=== PATIENT | female | born 2000 | race Caucasian/White ===

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

== ENCOUNTER 2019-05-30 19:31 | Emergency (ER) | payer MEDICAID ==
--- NOTE | 2019-05-30 19:37 | ERPHSYRPT ---
- History of Present Illness Time Seen by Provider: 05/30/19 19:37 Source: patient, family Exam Limitations: no limitations Timing/Duration: today Activites at Onset: none Quality: burning, pressure Onset Location: suprapubic Pain Radiation: none Severity of Pain-Max: mild Severity of Pain-Current: mild Sexual intercourse history: non-contributory Associated Symptoms: dysuria, urinary frequency Allergies/Adverse Reactions: cephalexin monohydrate [From Keflex] Allergy (Mild, Verified 05/30/19 20:04) Hives Hx Tetanus, Diphtheria Vaccination/Date Given: Yes Hx Influenza Vaccination/Date Given: No Hx Pneumococcal Vaccination/Date Given: No - Review of Systems Constitutional: No Symptoms Eyes: No Symptoms Ears, Nose, & Throat: No Symptoms Respiratory: No Symptoms Cardiac: No Symptoms Abdominal/Gastrointestinal: No Symptoms Genitourinary Symptoms: Dysuria, Urgency Musculoskeletal: No Symptoms Skin: No Symptoms Neurological: No Symptoms Psychological: No Symptoms Endocrine: No Symptoms Hematologic/Lymphatic: No Symptoms Immunological/Allergic: No Symptoms All Other Systems: Reviewed and Negative - Past Medical History Pertinent Past Medical History: No Neurological History: No Pertinent History ENT History: No Pertinent History Cardiac History: No Pertinent History Respiratory History: No Pertinent History Endocrine Medical History: No Pertinent History Musculoskeletal History: No Pertinent History GI Medical History: No Pertinent History History: No Pertinent History Psycho-Social History: No Pertinent History Female Reproductive Disorders: No Pertinent History - Past Surgical History Past Surgical History: Yes Neuro Surgical History: No Pertinent History Cardiac: No Pertinent History Respiratory: No Pertinent History Gastrointestinal: Appendectomy Genitourinary: No Pertinent History Musculoskeletal: No Pertinent History Female Surgical History: No Pertinent History - Social History Smoking Status: Current every day smoker Exposure to second hand smoke: Yes Drug Use: none Patient Lives Alone: No - Nursing Vital Signs Nursing Vital Signs: Initial Vital Signs Temperature 98.8 F 05/30/19 19:56 Pulse Rate 81 05/30/19 19:56 Respiratory Rate 18 05/30/19 19:56 Blood Pressure 137/79 05/30/19 19:56 O2 Sat by Pulse Oximetry 100 05/30/19 19:56 Pain Scale Pain Intensity 3 - Physical Exam General Appearance: no apparent distress, alert, anxiety Eye Exam: PERRL/EOMI, eyes nml inspection Ears, Nose, Throat Exam: normal ENT inspection, moist mucous membranes Neck Exam: normal inspection, non-tender, supple, full range of motion Respiratory Exam: No chest tenderness Cardiovascular Exam: regular rate/rhythm, normal heart sounds, normal peripheral pulses Gastrointestinal/Abdomen Exam: soft, normal bowel sounds, No tenderness Pelvic Exam: not done Rectal Exam: not done Back Exam: normal inspection, normal range of motion, No CVA tenderness, No vertebral tenderness Extremity Exam: normal inspection, normal range of motion, pelvis stable Neurologic Exam: alert, oriented x 3, cooperative, sales office manager II-XII nml as tested Skin Exam: normal color, warm, dry Lymphatic Exam: No adenopathy SpO2 Interpretation: normal O2 Delivery: Room Air - Course Nursing assessment & vital signs reviewed: Yes Ordered Tests: Active Orders 24 hr Category Date Time Status CULTURE,URINE Stat Lab 05/30/19 20:50 Received HCG,QUALITATIVE URINE Stat Lab 05/30/19 20:50 Completed UA W/RFX UR CULTURE Stat Lab 05/30/19 20:50 Completed Medication Summary Discontinued Medications Generic Name Dose Route Start Last Admin Trade Name Freq PRN Reason Stop Dose Admin Phenazopyridine HCl 200 mg 05/30/19 21:23 Pyridium 200 Mg PO 05/30/19 21:24 STAT ONE Trimethoprim/Sulfamethoxazole 1 tab 05/30/19 21:22 Bactrim Ds Tablet PO 05/30/19 21:23 STAT STA Lab/Rad Data: Laboratory Results 05/30/19 05/30/19 Range/Units 20:50 20:50 Urine Color YELLOW (YELLOW) Urine Appearance SLIGHTLY CLOUDY (CLEAR) Urine pH 7.0 (5-6) Ur Specific [place] 1.025 (1.005-1.025) Urine Protein NEGATIVE (Negative) Urine Ketones NEGATIVE (NEGATIVE) Urine Blood NEGATIVE (0-5) Virgil/ul Urine Nitrite NEGATIVE (NEGATIVE) Urine Bilirubin NEGATIVE (NEGATIVE) Urine Urobilinogen NEGATIVE (0-1) mg/dL Ur Leukocyte Esterase MODERATE (NEGATIVE) Urine WBC (Auto) 51-100 (0-5) /HPF Urine RBC (Auto) 6-10 (0-2) /HPF U Epithel Cells (Auto) MODERATE (FEW) /HPF Urine Bacteria (Auto) FEW (NEGATIVE) /HPF Unidentified Crystals Not Reportable Urine Mucus (Auto) SLIGHT (NEGATIVE) /HPF Urine Culture Reflexed YES (NO) Urine Glucose NEGATIVE (NEGATIVE) mg/dL Urine HCG, Qual NEGATIVE (Negative) - Progress Progress: re-examined Air Movement: good Blood Culture(s) Obtained: No Antibiotics given: Yes Counseled pt/family regarding: lab results, diagnosis, need for follow-up - Departure Departure Disposition: Home Clinical Impression: UTI (urinary tract infection) Condition: Stable Critical Care Time: No Referrals: DAVID DEL RIO [Primary Care Provider] - Additional Instructions: drink plenty of fluids. add tylenol and ibuprofen for pain. follow up with primary doctor for persistent symptoms Prescriptions: Phenazopyridine HCl 200 mg [Pyridium 200 mg] 200 mg PO TID #6 tablet Smz/Tmp Ds Tablet [Bactrim Ds Tablet] 1 udtab PO BID #20 tablet
[2019-05-30 20:04] VITALS: O2SAT 100
[2019-05-30 21:09] LABS: Appearance SLIGHTLY CLOUDY (CLEAR); Bacteria FEW /HPF (NEGATIVE); Bilirubin NEGATIVE (NEGATIVE); Blood NEGATIVE Ery/ul (0-5); Epithelial Cells MODERATE /HPF (FEW); Glucose NEGATIVE (NEGATIVE); Ketones NEGATIVE (NEGATIVE); Leukocyte Esterase MODERATE (NEGATIVE); Mucus SLIGHT /HPF (NEGATIVE); Nitrite NEGATIVE (NEGATIVE); Protein,Urine Dip NEGATIVE (Negative); Specific Gravity 1.025 (1.005-1.025); Urobilinogen NEGATIVE mg/dL (0-1); WBC 51-100 /HPF (0-5)
[2019-05-30] MEDS ORDERED: BACTRIM DS TABLET PO STA (21:22)
[2019-05-30] MEDS ORDERED: PYRIDIUM 200 MG PO ONE (21:23)
[2019-05-30] MEDS ORDERED: PYRIDIUM 200 MG ONE (21:27)
[2019-05-30] MEDS ORDERED: BACTRIM DS TABLET PO ONE (21:27)
[2019-05-30 21:50] VITALS: BP 115/73; PULSE 63
== END 2019-05-30 21:50 | disposition home or self-care (01) ==
LOC: ED 19:31
DX: N39.0 Urinary tract infection, site not specified (principal)
CPT/HCPCS: 81001; 84703; 87086; 99283; A9270-GY

== ENCOUNTER 2019-11-18 20:05 | Emergency (ER) | payer MEDICAID, OTHER ==
[2019-11-18 21:10] VITALS: O2SAT 100
[2019-11-18 21:22] LABS: Appearance SLIGHTLY CLOUDY (CLEAR); Bilirubin NEGATIVE (NEGATIVE); Blood NEGATIVE Ery/ul (0-5); Epithelial Cells RARE /HPF (FEW); Glucose NEGATIVE (NEGATIVE); Ketones NEGATIVE (NEGATIVE); Leukocyte Esterase LARGE (NEGATIVE); Mucus MODERATE /HPF (NEGATIVE); Nitrite NEGATIVE (NEGATIVE); Protein,Urine Dip 30 (Negative); Specific Gravity 1.035 (1.005-1.025); Urobilinogen NEGATIVE mg/dL (0-1)
--- NOTE | 2019-11-18 21:46 | ERPHSYRPT ---
- History of Present Illness Time Seen by Provider: 11/18/19 20:50 Patient Subjective Stated Complaint: pt states that today she began burning in pelvis area, pt states that she woke fine, pt states that she had intercoarse this morning, pt states that while she was at work she began to have pressure and burning while standing, pt states that she had a UTI last month Triage Nursing Assessment: pt ambulated into the er, pt is axo x3, pt c/o of burning while urinating, pt has redness to rene area, white discharge present, c/o 8/10 pain to rene area, vital wnl Physician History: Patient is a 19-year-old white female with history of recurrent urinary tract infections. This episodes symptoms started today she was instructed by her urologist to have a prolonged course of Bactrim and she was uncertain of that and did not follow his instructions. She also complains of vaginal itching and pain and white discharge. Timing/Duration: today, intermittent Activites at Onset: sexual activity Quality: aching, burning Onset Location: vaginal, urethral Pain Radiation: none Severity of Pain-Max: severe Severity of Pain-Current: severe Prior abdominal problems: similar symptoms, UTI Sexual intercourse history: less than 2 months ago Modifying Factors: Improves With: urinating Associated Symptoms: dysuria, urinary frequency, vaginal discharge Allergies/Adverse Reactions: cephalexin monohydrate [From Keflex] Allergy (Mild, Verified 11/18/19 21:10) Hives Hx Tetanus, Diphtheria Vaccination/Date Given: Yes Hx Influenza Vaccination/Date Given: No Hx Pneumococcal Vaccination/Date Given: No Travel Risk - International Travel Have you traveled outside of the country in past 3 weeks: No - Coronavirus Screening Are you exhibiting any of the following symptoms?: No Close contact with a COVID-19 positive Pt in past 14-21 Days: No - Review of Systems Constitutional: No Fever, No Chills Eyes: No Symptoms Ears, Nose, & Throat: No Symptoms Respiratory: No Cough, No Dyspnea Cardiac: No Chest Pain, No Edema, No Syncope Abdominal/Gastrointestinal: No Abdominal Pain, No Nausea, No Vomiting, No Diarrhea Genitourinary Symptoms: Dysuria, Frequency, Hematuria, Urgency, Vaginal Discharge, Vaginal Itching Musculoskeletal: No Back Pain, No Neck Pain Skin: No Rash Neurological: No Dizziness, No Focal Weakness, No Sensory Changes Psychological: No Symptoms Endocrine: No Symptoms All Other Systems: Reviewed and Negative - Past Medical History Pertinent Past Medical History: No Neurological History: No Pertinent History ENT History: No Pertinent History Cardiac History: No Pertinent History Respiratory History: No Pertinent History Endocrine Medical History: No Pertinent History Musculoskeletal History: No Pertinent History GI Medical History: No Pertinent History History: No Pertinent History Psycho-Social History: Anxiety, Depression Female Reproductive Disorders: No Pertinent History - Past Surgical History Past Surgical History: Yes Neuro Surgical History: No Pertinent History Cardiac: No Pertinent History Respiratory: No Pertinent History Gastrointestinal: Appendectomy Genitourinary: No Pertinent History Musculoskeletal: No Pertinent History Female Surgical History: No Pertinent History - Social History Smoking Status: Current every day smoker How long have you smoked: 0.2 Exposure to second hand smoke: Yes Drug Use: none Patient Lives Alone: No - Female History Hx Now: No - Nursing Vital Signs Nursing Vital Signs: Initial Vital Signs Temperature 98.5 F 11/18/19 20:43 Pulse Rate 84 11/18/19 20:43 Respiratory Rate 14 11/18/19 20:43 Blood Pressure 127/96 11/18/19 20:43 O2 Sat by Pulse Oximetry 100 11/18/19 20:43 Pain Scale Pain Intensity 8 - Physical Exam General Appearance: mild distress, alert Eye Exam: PERRL/EOMI, eyes nml inspection Ears, Nose, Throat Exam: normal ENT inspection, TMs normal, pharynx normal, moist mucous membranes Neck Exam: normal inspection, non-tender, supple, full range of motion Respiratory Exam: normal breath sounds, lungs clear, No respiratory distress Cardiovascular Exam: regular rate/rhythm, normal heart sounds, normal peripheral pulses Gastrointestinal/Abdomen Exam: soft, No tenderness, No mass Pelvic Exam: adnexal tenderness, vaginal discharge (Typical of monilial), No normal external exam (Examination of the external genitalia reveals some redness but no ulcerations appreciated) Rectal Exam: deferred Back Exam: normal inspection, normal range of motion, No CVA tenderness, No vertebral tenderness Extremity Exam: normal inspection, normal range of motion, pelvis stable Neurologic Exam: alert, oriented x 3, cooperative, paper ruler II-XII nml as tested, normal mood/affect, sensation nml, No motor deficits Skin Exam: normal color, warm, dry Lymphatic Exam: No adenopathy SpO2: 100 - Course Nursing assessment & vital signs reviewed: Yes Ordered Tests: Active Orders 24 hr Category Date Time Status CULTURE,URINE Stat Lab 11/18/19 21:12 Received UA W/RFX UR CULTURE Stat Lab 11/18/19 21:12 Completed Lab/Rad Data: Laboratory Results 11/18/19 Range/Units 21:12 Urine Color YELLOW (YELLOW) Urine Appearance SLIGHTLY CLOUDY (CLEAR) Urine pH 5.0 (5-6) Ur Specific [place] 1.035 (1.005-1.025) Urine Protein 30 (Negative) Urine Ketones NEGATIVE (NEGATIVE) Urine Blood NEGATIVE (0-5) Virgil/ul Urine Nitrite NEGATIVE (NEGATIVE) Urine Bilirubin NEGATIVE (NEGATIVE) Urine Urobilinogen NEGATIVE (0-1) mg/dL Ur Leukocyte Esterase LARGE (NEGATIVE) Urine WBC (Auto) 6-10 (0-5) /HPF Urine RBC (Auto) NONE (0-2) /HPF U Epithel Cells (Auto) RARE (FEW) /HPF Urine Bacteria (Auto) NONE (NEGATIVE) /HPF Urine Mucus (Auto) MODERATE (NEGATIVE) /HPF Urine Culture Reflexed YES (NO) Urine Glucose NEGATIVE (NEGATIVE) mg/dL - Progress Progress: unchanged Air Movement: good Blood Culture(s) Obtained: No Antibiotics given: Yes - Departure Departure Disposition: Home Clinical Impression: Urinary tract infection, Monilial vaginitis Condition: Stable Critical Care Time: No Referrals: DAVID DEL RIO [Primary Care Provider] - Instructions: Urinary Tract Infection, Adult (DC) Prescriptions: Smz/Tmp Ds Tablet [Bactrim Ds Tablet] 1 udtab PO BID #14 tablet Fluconazole [Diflucan] 150 mg PO DAILY 5 Days #5 tablet
[2019-11-18 21:58] VITALS: BP 125/62; PULSE 64
== END 2019-11-18 21:58 | disposition home or self-care (01) ==
LOC: ED 20:05
DX: N39.0 Urinary tract infection, site not specified (principal); B37.3 Candidiasis of vulva and vagina
CPT/HCPCS: 81001; 87086; 99283

== ENCOUNTER 2020-05-13 23:19 | Emergency (ER) | payer OTHER ==
[2020-05-13] MEDS ORDERED: TORAdol 30 mg Injection IV ONE (23:42)
--- NOTE | 2020-05-13 23:43 | ERPHSYRPT ---
- History of Present Illness Time Seen by Provider: 05/13/20 23:36 Source: patient Exam Limitations: no limitations Physician History: The patient is a 19-year-old female with a past medical history significant for a prior appendectomy, anxiety/depression who presents with a chief complaint of left lower quadrant abdominal pain. Onset reported was yesterday. The pain is described as a sharp pain that is constant and localized to the left lower quadrant and does not radiate and is mild to moderate severity. She denies fever, chills, changes in her appetite, nausea, vomiting, diarrhea, constipation, vaginal bleeding or vaginal discharge. Of note, the patient reportedly has a history of ovarian cyst and is on Depo. She also thinks she may have a history of kidney stones because she had "crystals" in her urine on a UA performed in the recent past. For pain in the last 24 hours to include Tylenol and/or ibuprofen. Associated Symptoms: abdominal pain, No nausea, No vomiting, No cough, No chest pain, No fever Allergies/Adverse Reactions: cephalexin monohydrate [From Datadecision] Allergy (Mild, Verified 05/13/20 23:42) Hives Home Medications: Bupropion HCl [Wellbutrin Xl] 300 mg PO DAILY 05/13/20 [History] Hx Tetanus, Diphtheria Vaccination/Date Given: Yes Hx Influenza Vaccination/Date Given: No Hx Pneumococcal Vaccination/Date Given: No - Review of Systems Constitutional: No Symptoms, No Fever, No Chills, No Weight Loss Eyes: No Symptoms Ears, Nose, & Throat: No Symptoms Respiratory: No Cough, No Cyanosis, No Dyspnea, No Dyspnea on Exertion ([place]) Cardiac: No Chest Pain, No Palpitations, No Syncope Abdominal/Gastrointestinal: Abdominal Pain, No Nausea, No Vomiting, No Diarrhea, No Constipation, No Hematemesis, No Hematochezia, No Melena, No Appetite Changes Genitourinary Symptoms: No Dysuria, No Frequency, No Urgency, No Urinary Retention, No Flank Pain, No Vaginal Bleeding, No Vaginal Discharge Musculoskeletal: No Back Pain Skin: No Symptoms Neurological: No Symptoms Psychological: No Symptoms All Other Systems: Reviewed and Negative - Past Medical History Pertinent Past Medical History: No Neurological History: No Pertinent History ENT History: No Pertinent History Cardiac History: No Pertinent History Respiratory History: No Pertinent History Endocrine Medical History: No Pertinent History Musculoskeletal History: No Pertinent History GI Medical History: No Pertinent History History: No Pertinent History Psycho-Social History: Anxiety, Depression Female Reproductive Disorders: No Pertinent History - Past Surgical History Past Surgical History: Yes Neuro Surgical History: No Pertinent History Cardiac: No Pertinent History Respiratory: No Pertinent History Gastrointestinal: Appendectomy Genitourinary: No Pertinent History Musculoskeletal: No Pertinent History Female Surgical History: No Pertinent History - Social History Smoking Status: Current every day smoker How long have you smoked: 0.2 Exposure to second hand smoke: Yes Drug Use: none Patient Lives Alone: No - Nursing Vital Signs Nursing Vital Signs: Initial Vital Signs Temperature 98.0 F 05/13/20 23:29 Pulse Rate 97 H 05/13/20 23:29 Respiratory Rate 18 05/13/20 23:29 Blood Pressure 157/94 05/13/20 23:29 O2 Sat by Pulse Oximetry 99 05/13/20 23:29 Pain Scale Pain Intensity 9 - Physical Exam General Appearance: no apparent distress, alert Eye Exam: PERRL/EOMI, No scleral icterus Ears, Nose, Throat Exam: normal ENT inspection, pharynx normal, moist mucous membranes, No pharyngeal erythema, No tonsillar exudate Neck Exam: normal inspection Respiratory Exam: normal breath sounds, airway intact, No chest tenderness, No lungs clear, No respiratory distress Cardiovascular Exam: regular rate/rhythm, normal heart sounds, No murmur, No friction rub, No gallop, No tachycardia, No edema Gastrointestinal/Abdomen Exam: soft, tenderness (LLQ tenderness), rebound, No distention, No mass, No guarding, No organomegaly, No splenomegaly Pelvic Exam: not done Rectal Exam: deferred Back Exam: normal inspection Extremity Exam: normal inspection Neurologic Exam: alert, oriented x 3, cooperative Skin Exam: normal color, warm, dry, rash, No petechiae, No jaundice SpO2 Interpretation: normal SpO2: 99 - Course Nursing assessment & vital signs reviewed: Yes - CT Exams Abdomen/Pelvis CT Interpretation: Tele-radiologist Report (Epiploic appendagitis ) Ordered Tests: Active Orders 24 hr Category Date Time Status ABDOMEN AND PELVIS W CONTRAST [CT] Stat Exams 05/14/20 00:13 Taken BMP Stat Lab 05/13/20 23:45 Completed CBC W DIFF Stat Lab 05/13/20 23:45 Completed HCG,QUALITATIVE URINE Stat Lab 05/13/20 23:45 Completed LIPASE Stat Lab 05/13/20 23:45 Completed UA W/RFX UR CULTURE Stat Lab 05/13/20 23:45 Completed Medication Summary Discontinued Medications Generic Name Dose Route Start Last Admin Trade Name [place] PRN Reason Stop Dose Admin Ketorolac Tromethamine 15 mg 05/13/20 23:42 05/14/20 00:08 Toradol 30 Mg Injection IV 05/13/20 23:43 15 mg STAT ONE Administration Ketorolac Tromethamine Confirm 05/14/20 00:07 Toradol 30 Mg Injection Administered 05/14/20 00:08 Dose 30 mg .ROUTE .STK-MED ONE Lab/Rad Data: Laboratory Result Diagrams 05/13/20 23:45 05/13/20 23:45 Laboratory Results 05/13/20 05/13/20 05/13/20 Range/Units 23:45 23:45 23:45 WBC (4.0-10.5) K/mm3 RBC (4.1-5.4) M/mm3 Hgb (12.0-16.0) gm/dl Hct (35-47) % MCV (78-100) fl MCH (26-32) pg MCHC (32-36) g/dl RDW (11.5-14.0) % Plt Count (150-450) K/mm3 MPV (7.5-11.0) fl Gran % (36.0-66.0) % Eos # (Auto) (0-0.5) Absolute Lymphs (auto) (1.0-4.6) Absolute Monos (auto) (0.0-1.3) Lymphocytes % (24.0-44.0) % Monocytes % (0.0-12.0) % Eosinophils % (0.00-5.0) % Basophils % (0.0-0.4) % Absolute Granulocytes (1.4-6.9) Basophils # (0-0.4) Sodium 139 (137-145) mmol/L Potassium 3.8 (3.5-5.1) mmol/L Chloride 103 (98-107) mmol/L Carbon Dioxide 26 (22-30) mmol/L Anion Gap 13.5 (5-15) MEQ/L BUN 14 (7-17) mg/dL Creatinine 0.75 (0.52-1.04) mg/dL Estimated GFR > 60.0 ML/MIN Glucose 128 H (74-106) mg/dL Calcium 9.9 (8.4-10.2) mg/dL Lipase 86 (23-300) U/L Urine Color STRAW (YELLOW) Urine Appearance CLEAR (CLEAR) Urine pH 7.0 (5-6) Ur Specific [place] 1.005 (1.005-1.025) Urine Protein NEGATIVE (Negative) Urine Ketones NEGATIVE (NEGATIVE) Urine Blood NEGATIVE (0-5) [place]gil/ul Urine Nitrite NEGATIVE (NEGATIVE) Urine Bilirubin NEGATIVE (NEGATIVE) Urine Urobilinogen NEGATIVE (0-1) mg/dL Ur Leukocyte Esterase TRACE (NEGATIVE) Urine WBC (Auto) 0-2 (0-5) /HPF Urine RBC (Auto) NONE (0-2) /HPF U Epithel Cells (Auto) NONE (FEW) /HPF Urine Bacteria (Auto) NONE (NEGATIVE) /HPF Urine Culture Reflexed NO (NO) Urine Glucose NEGATIVE (NEGATIVE) mg/dL Urine HCG, Qual NEGATIVE (Negative) 05/13/20 Range/Units 23:45 WBC 8.7 (4.0-10.5) K/mm3 RBC 4.13 (4.1-5.4) M/mm3 Hgb 13.6 (12.0-16.0) gm/dl Hct 39.2 (35-47) % MCV 94.9 (78-100) fl MCH 32.9 H (26-32) pg MCHC 34.7 (32-36) g/dl RDW 12.7 (11.5-14.0) % Plt Count 367 (150-450) K/mm3 MPV 10.8 (7.5-11.0) fl Gran % 50.5 (36.0-66.0) % Eos # (Auto) 0.22 (0-0.5) Absolute Lymphs (auto) 3.59 (1.0-4.6) Absolute Monos (auto) 0.47 (0.0-1.3) Lymphocytes % 41.3 (24.0-44.0) % Monocytes % 5.4 (0.0-12.0) % Eosinophils % 2.5 (0.00-5.0) % Basophils % 0.3 (0.0-0.4) % Absolute Granulocytes 4.38 (1.4-6.9) Basophils # 0.03 (0-0.4) Sodium (137-145) mmol/L Potassium (3.5-5.1) mmol/L Chloride (98-107) mmol/L Carbon Dioxide (22-30) mmol/L Anion Gap (5-15) MEQ/L BUN (7-17) mg/dL Creatinine (0.52-1.04) mg/dL Estimated GFR ML/MIN Glucose (74-106) mg/dL Calcium (8.4-10.2) mg/dL Lipase (23-300) U/L Urine Color (YELLOW) Urine Appearance (CLEAR) Urine pH (5-6) Ur Specific [place] (1.005-1.025) Urine Protein (Negative) Urine Ketones (NEGATIVE) Urine Blood (0-5) Virgil/ul Urine Nitrite (NEGATIVE) Urine Bilirubin (NEGATIVE) Urine Urobilinogen (0-1) mg/dL Ur Leukocyte Esterase (NEGATIVE) Urine WBC (Auto) (0-5) /HPF Urine RBC (Auto) (0-2) /HPF U Epithel Cells (Auto) (FEW) /HPF Urine Bacteria (Auto) (NEGATIVE) /HPF Urine Culture Reflexed (NO) Urine Glucose (NEGATIVE) mg/dL Urine HCG, Qual (Negative) - Progress Progress: improved Progress Note: 05/14/20 02:56 Nontoxic appearance. The patient presents with left lower quadrant abdominal pain with a differential being mass, ovarian cyst, ovarian torsion, colitis, ectopic fortunately, her CT resulted in what appears to be epiploic appendagitis. Was relatively benign. She was discharged with instructions to take naproxen scheduled for pain in addition to Tylenol to take for breakthrough pain. Counseled pt/family regarding: lab results, diagnosis, need for follow-up, rad results - Departure Departure Disposition: Home Clinical Impression: Epiploic appendagitis Condition: Stable Critical Care Time: No Referrals: DAVID FERNANDEZ [Primary Care Provider] - Instructions: Acute Abdomen (Belly Pain), Adult (DC) Additional Instructions: You have evidence of epiploic appendagitis on your CT scan, specifically over a part of the fat attached to the left colon. The mainstay of therapy consist of NSAIDs. Medications in the NSAID class include ibuprofen, Motrin, Aleve or naproxen. Please take your naproxen as prescribed and please take this medication with food. Prescriptions: Naproxen 500 mg [Naprosyn 500 MG] 500 mg PO BID #10 tablet
[2020-05-14 00:03] LABS: Absolute Neutrophil Ct (ANC) 4.38 (1.4-6.9); BASOPHIL % 0.3 % (0.0-0.4); Basophil (Absolute #) 0.03 (0-0.4); Eosinophil % 2.5 % (0.00-5.0); Eosinophil (Absolute #) 0.22 (0-0.5); Hematocrit 39.2 % (35-47); Hemoglobin 13.6 gm/dl (12.0-16.0); Lymphocyte (Absolute #) 3.59 (1.0-4.6); Lymphocytes % 41.3 % (24.0-44.0); Mean Cell Volume 94.9 fl (78-100); Mean Corpuscular Hemoglobin 32.9 pg (26-32); Mean Corpuscular Hgb Concent. 34.7 g/dl (32-36); Mean Platelet Volume 10.8 fl (7.5-11.0); Monocyte (Absolute #) 0.47 (0.0-1.3); Monocytes % 5.4 % (0.0-12.0); Neutrophil % 50.5 % (36.0-66.0); Platelet Count 367 K/mm3 (150-450); Red Blood Count 4.13 M/mm3 (4.1-5.4); Red Cell Distribution Width 12.7 % (11.5-14.0); White Blood Count 8.7 K/mm3 (4.0-10.5)
[2020-05-14] MEDS ORDERED: TORAdol 30 mg Injection ONE (00:07)
[2020-05-14 00:12] LABS: ANION GAP 13.5 MEQ/L (5-15); BLOOD UREA NITROGEN 14 mg/dL (7-17); CHLORIDE 103 mmol/L (98-107); Calcium 9.9 mg/dL (8.4-10.2); Carbon Dioxide 26 mmol/L (22-30); Creatinine 1 0.75 mg/dL (0.52-1.04); EST GLOMERULAR FILTRATION RATE > 60.0 ML/MIN; Glucose 128 mg/dL (74-106); LIPASE 86 U/L (23-300); Potassium 3.8 mmol/L (3.5-5.1); SODIUM 139 mmol/L (137-145)
[2020-05-14 00:36] LABS: Appearance CLEAR (CLEAR); Bilirubin NEGATIVE (NEGATIVE); Blood NEGATIVE Ery/ul (0-5); Glucose NEGATIVE (NEGATIVE); Ketones NEGATIVE (NEGATIVE); Leukocyte Esterase TRACE (NEGATIVE); Nitrite NEGATIVE (NEGATIVE); Protein,Urine Dip NEGATIVE (Negative); Specific Gravity 1.005 (1.005-1.025); Urobilinogen NEGATIVE mg/dL (0-1); WBC 0-2 /HPF (0-5)
[2020-05-14 01:28] VITALS: BP 125/69; PULSE 76
[2020-05-14 02:57] VITALS: O2SAT 99
--- NOTE | 2020-05-14 08:52 | XRAY ---
Indication: Left lower quadrant pain. History ovary cysts. Multiple contiguous axial images obtained through the abdomen and pelvis using 80 cc Isovue 370 contrast only. Comparison: CT renal stone study January 07, 2015. Lung bases remain clear. Heart is not enlarged. Noncontrasted stomach and bowel loops appear nonobstructed. Again appendectomy. Distal descending colon demonstrates subcentimeter fatty pericolonic stranding (image 52, series 2), possible epiploic appendagitis. No free fluid/air. Gallbladder partially contracted without gallstones. Remaining liver, gallbladder, pancreas, spleen, adrenal glands, kidneys, ureters, bladder, uterus, and aorta appear unremarkable. No pathologic retroperitoneal lymphadenopathy. Osseous structures intact. Impression: 1. New distal descending colon subcentimeter fatty pericolonic stranding, possible epiploic appendagitis. 2. Remaining CT abdomen/pelvis with contrast exam is negative. Comment: Preliminary interpretation was made by [facility]. No critical discrepancy.
== END 2020-05-14 01:44 | disposition home or self-care (01) ==
LOC: ED 23:19
DX: K63.89 Other specified diseases of intestine (principal); R10.32 Left lower quadrant pain
CPT/HCPCS: 36000; 36415; 74177; 80048; 81001; 83690; 84703; 85025; 96374; 99284; J1885

== ENCOUNTER 2020-07-20 21:53 | Emergency (ER) | payer OTHER ==
[2020-07-20] MEDS ORDERED: Zofran 4 MG/2 ML VIAL IV ONE (22:21)
[2020-07-20] MEDS ORDERED: Sodium Chloride 0.9% 1000 ML 1,000 ML IV STA (22:21)
[2020-07-20] MEDS ORDERED: TORAdol 30 mg Injection IV ONE (22:21)
--- NOTE | 2020-07-20 23:02 | ERPHSYRPT ---
- History of Present Illness Time Seen by Provider: 07/20/20 21:54 Historian: patient Exam Limitations: no limitations Patient Subjective Stated Complaint: Patient states " I feel like I have an Ovarian Cyst that is getting ready to bust". I have had one bust several years ago and it feels the same way". Triage Nursing Assessment: Patient arrived to ED and offered bathroom to collect urine. Urine collected and yellow in color with no odor present. Patient ambulated to room with steady gait and no difficulties noted. Patient A/O times 4. Patient able to follow directions without difficulty. Lungs clear bilateral A/P throughout. Patient denies chest pain. Patient denies SOB. Physician History: 19 years old female presented in the ER with chief complaint of right lower quadrant/right pelvic pain since yesterday, mild to moderate intensity dull aching to sharp in nature, aggravated with activity and better with being resting with no radiation. Denies any urinary disturbance, no vaginal bleeding or discharge. Patient does have history of appendectomy and right ovarian cyst in the past. Patient thinks she is having pain similar to her ovarian cyst pain. Denies any fever or chills. Has nausea but no vomiting. Denies any upper abdominal pain. Timing/Duration: yesterday, gradual onset Quality: sharpness Abdominal Pain Onset Location: RLQ Severity of Pain-Max: moderate Severity of Pain-Current: moderate Associated Symptoms: nausea Previous symptoms: same symptoms as today Allergies/Adverse Reactions: cephalexin monohydrate [From Keflex] Allergy (Mild, Verified 07/20/20 22:13) Hives Hx Tetanus, Diphtheria Vaccination/Date Given: Yes Hx Influenza Vaccination/Date Given: No Hx Pneumococcal Vaccination/Date Given: No Immunizations Up to Date: Yes Travel Risk - International Travel Have you traveled outside of the country in past 3 weeks: No - Coronavirus Screening Are you exhibiting any of the following symptoms?: No Close contact with a COVID-19 positive Pt in past 14-21 Days: No - Review of Systems Constitutional: No Symptoms Eyes: No Symptoms Ears, Nose, & Throat: No Symptoms Respiratory: No Symptoms Cardiac: No Symptoms Abdominal/Gastrointestinal: Abdominal Pain Genitourinary Symptoms: No Symptoms Musculoskeletal: No Symptoms Skin: No Symptoms Neurological: No Symptoms Psychological: No Symptoms Endocrine: No Symptoms Hematologic/Lymphatic: No Symptoms Immunological/Allergic: No Symptoms - Past Medical History Pertinent Past Medical History: No Neurological History: No Pertinent History ENT History: No Pertinent History Cardiac History: No Pertinent History Respiratory History: No Pertinent History Endocrine Medical History: No Pertinent History Musculoskeletal History: No Pertinent History GI Medical History: No Pertinent History History: No Pertinent History Psycho-Social History: Anxiety, Depression Female Reproductive Disorders: No Pertinent History - Past Surgical History Past Surgical History: Yes Neuro Surgical History: No Pertinent History Cardiac: No Pertinent History Respiratory: No Pertinent History Gastrointestinal: Appendectomy Genitourinary: No Pertinent History Musculoskeletal: No Pertinent History Female Surgical History: No Pertinent History - Social History Smoking Status: Former smoker How long have you smoked: 0.2 Exposure to second hand smoke: Yes Drug Use: none Patient Lives Alone: Yes - Female History Hx Last Menstrual Period: Depo-Shot Hx Now: No - Nursing Vital Signs Nursing Vital Signs: Initial Vital Signs Temperature 98.6 F 07/20/20 22:06 Pulse Rate 88 07/20/20 22:06 Respiratory Rate 18 07/20/20 22:06 Blood Pressure 161/74 07/20/20 22:06 O2 Sat by Pulse Oximetry 99 07/20/20 22:06 Pain Scale Pain Intensity 0 - Physical Exam General Appearance: no apparent distress Eye Exam: eyes nml inspection Ears, Nose, Throat Exam: normal ENT inspection, pharynx normal Neck Exam: normal inspection, non-tender, supple, full range of motion Respiratory Exam: normal breath sounds, lungs clear Cardiovascular Exam: regular rate/rhythm, normal heart sounds Gastrointestinal/Abdomen Exam: soft, normal bowel sounds, tenderness (Right lower quadrant/pelvic area. 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 Skin Exam: normal color, warm SpO2 Interpretation: normal SpO2: 99 O2 Delivery: Room Air Ordered Tests: Medication Summary Discontinued Medications Generic Name Dose Route Start Last Admin Trade Name Freq PRN Reason Stop Dose Admin Sodium Chloride 1,000 mls @ 999 mls/hr 07/20/20 22:21 07/20/20 23:27 Sodium Chloride 0.9% 1000 Ml IV 07/20/20 23:21 999 mls/hr .Q1H1M STA Administration Sodium Chloride Confirm 07/20/20 23:22 Sodium Chloride 0.9% 1000 Ml Administered 07/20/20 23:23 Dose 1,000 mls @ ud .ROUTE .STK-MED ONE Ketorolac Tromethamine 30 mg 07/20/20 22:21 07/20/20 23:27 Toradol 30 Mg Injection IV 07/20/20 22:22 30 mg STAT ONE Administration Ketorolac Tromethamine Confirm 07/20/20 23:22 Toradol 30 Mg Injection Administered 07/20/20 23:23 Dose 30 mg .ROUTE .STK-MED ONE Ondansetron HCl 4 mg 07/20/20 22:21 07/20/20 23:27 Zofran 4 Mg/2 Ml Vial IV 07/20/20 22:22 4 mg STAT ONE Administration Ondansetron HCl Confirm 07/20/20 23:22 Zofran 4 Mg/2 Ml Vial Administered 07/20/20 23:23 Dose 4 mg .ROUTE .STK-MED ONE Lab/Rad Data: Laboratory Result Diagrams 07/20/20 23:15 07/20/20 23:15 Laboratory Results 07/20/20 07/20/20 07/20/20 Range/Units 23:15 23:15 23:15 WBC 9.6 (4.0-10.5) K/mm3 RBC 4.22 (4.1-5.4) M/mm3 Hgb 12.6 (12.0-16.0) gm/dl Hct 40.0 (35-47) % MCV 94.8 (78-100) fl MCH 29.9 (26-32) pg MCHC 31.5 L (32-36) g/dl RDW 12.4 (11.5-14.0) % Plt Count 364 (150-450) K/mm3 MPV 10.8 (7.5-11.0) fl Gran % 50.4 (36.0-66.0) % Eos # (Auto) 0.16 (0-0.5) Absolute Lymphs (auto) 3.90 (1.0-4.6) Absolute Monos (auto) 0.68 (0.0-1.3) Lymphocytes % 40.5 (24.0-44.0) % Monocytes % 7.1 (0.0-12.0) % Eosinophils % 1.7 (0.00-5.0) % Basophils % 0.3 (0.0-0.4) % Absolute Granulocytes 4.87 (1.4-6.9) Basophils # 0.03 (0-0.4) Sodium 139 (137-145) mmol/L Potassium 3.8 (3.5-5.1) mmol/L Chloride 104 (98-107) mmol/L Carbon Dioxide 25 (22-30) mmol/L Anion Gap 13.3 (5-15) MEQ/L BUN 15 (7-17) mg/dL Creatinine 0.87 (0.52-1.04) mg/dL Estimated GFR > 60.0 ML/MIN Glucose 113 H (74-106) mg/dL Calcium 9.9 (8.4-10.2) mg/dL Total Bilirubin 0.10 L (0.2-1.3) mg/dL AST 21 (14-36) U/L ALT 27 (0-35) U/L Alkaline Phosphatase 84 (38-126) U/L Serum Total Protein 7.9 (6.3-8.2) g/dL Albumin 4.6 (3.5-5.0) g/dL Lipase 92 (23-300) U/L Urine Color (YELLOW) Urine Appearance (CLEAR) Urine pH (5-6) Ur Specific [place] (1.005-1.025) Urine Protein (Negative) Urine Ketones (NEGATIVE) Urine Blood (0-5) [place]gil/ul Urine Nitrite (NEGATIVE) Urine Bilirubin (NEGATIVE) Urine Urobilinogen (0-1) mg/dL Ur Leukocyte Esterase (NEGATIVE) Urine WBC (Auto) (0-5) /HPF Urine RBC (Auto) (0-2) /HPF U Epithel Cells (Auto) (FEW) /HPF Urine Bacteria (Auto) (NEGATIVE) /HPF Urine Mucus (Auto) (NEGATIVE) /HPF Urine Culture Reflexed (NO) Urine Glucose (NEGATIVE) mg/dL Urine HCG, Qual (Negative) 07/20/20 07/20/20 Range/Units 22:21 22:21 WBC (4.0-10.5) K/mm3 RBC (4.1-5.4) M/mm3 Hgb (12.0-16.0) gm/dl Hct (35-47) % MCV (78-100) fl MCH (26-32) pg MCHC (32-36) g/dl RDW (11.5-14.0) % Plt Count (150-450) K/mm3 MPV (7.5-11.0) fl Gran % (36.0-66.0) % Eos # (Auto) (0-0.5) Absolute Lymphs (auto) (1.0-4.6) Absolute Monos (auto) (0.0-1.3) Lymphocytes % (24.0-44.0) % Monocytes % (0.0-12.0) % Eosinophils % (0.00-5.0) % Basophils % (0.0-0.4) % Absolute Granulocytes (1.4-6.9) Basophils # (0-0.4) Sodium (137-145) mmol/L Potassium (3.5-5.1) mmol/L Chloride (98-107) mmol/L Carbon Dioxide (22-30) mmol/L Anion Gap (5-15) MEQ/L BUN (7-17) mg/dL Creatinine (0.52-1.04) mg/dL Estimated GFR ML/MIN Glucose (74-106) mg/dL Calcium (8.4-10.2) mg/dL Total Bilirubin (0.2-1.3) mg/dL AST (14-36) U/L ALT (0-35) U/L Alkaline Phosphatase (38-126) U/L Serum Total Protein (6.3-8.2) g/dL Albumin (3.5-5.0) g/dL Lipase (23-300) U/L Urine Color YELLOW (YELLOW) Urine Appearance SLIGHTLY CLOUDY (CLEAR) Urine pH 6.0 (5-6) Ur Specific [place] 1.033 (1.005-1.025) Urine Protein NEGATIVE (Negative) Urine Ketones TRACE (NEGATIVE) Urine Blood NEGATIVE (0-5) Virgil/ul Urine Nitrite NEGATIVE (NEGATIVE) Urine Bilirubin NEGATIVE (NEGATIVE) Urine Urobilinogen NEGATIVE (0-1) mg/dL Ur Leukocyte Esterase TRACE (NEGATIVE) Urine WBC (Auto) 3-5 (0-5) /HPF Urine RBC (Auto) NONE (0-2) /HPF U Epithel Cells (Auto) RARE (FEW) /HPF Urine Bacteria (Auto) NONE (NEGATIVE) /HPF Urine Mucus (Auto) SLIGHT (NEGATIVE) /HPF Urine Culture Reflexed NO (NO) Urine Glucose NEGATIVE (NEGATIVE) mg/dL Urine HCG, Qual NEGATIVE (Negative) - Progress Progress: improved, re-examined Progress Note: 19 years old is evaluated for right right lower quadrant/right pelvic pain without any vaginal bleeding or discharge. She is given fluid bolus along with Toradol for symptomatic relief, on reevaluation her pain is almost completely resolved. She has grossly unremarkable acute abdomen work-up including CT abdomen pelvis with contrast. Her pain could be secondary to small ovarian cyst related but do not think patient needs emergent ultrasound in the ER. She has stable vitals. Recommended outpatient follow-up. Discussed signs symptoms of worsening needing return to ER which she seems understanding. Counseled pt/family regarding: lab results, diagnosis, need for follow-up, rad results - Departure Departure Disposition: Home Clinical Impression: Pelvic pain Condition: Stable Critical Care Time: No Referrals: DAVID FERNANDEZ [Primary Care Provider] - Follow Up with PCP/3 days Instructions: Acute Pelvic Pain Additional Instructions: Take Tylenol/ibuprofen as needed for pain. Follow-up with primary care and [employer] for reevaluation. Return to ER for intractable pain/vaginal bleeding di scharge/vomiting etc. Prescriptions: Ibuprofen 600 mg PO Q6HPRN PRN 10 Days #20 tablet PRN Reason: Pain
[2020-07-20 23:08] LABS: Appearance SLIGHTLY CLOUDY (CLEAR); Bilirubin NEGATIVE (NEGATIVE); Blood NEGATIVE Ery/ul (0-5); Epithelial Cells RARE /HPF (FEW); Glucose NEGATIVE (NEGATIVE); Ketones TRACE (NEGATIVE); Leukocyte Esterase TRACE (NEGATIVE); Mucus SLIGHT /HPF (NEGATIVE); Nitrite NEGATIVE (NEGATIVE); Protein,Urine Dip NEGATIVE (Negative); Specific Gravity 1.033 (1.005-1.025); Urobilinogen NEGATIVE mg/dL (0-1)
[2020-07-20] MEDS ORDERED: TORAdol 30 mg Injection ONE (23:22)
[2020-07-20] MEDS ORDERED: Sodium Chloride 0.9% 1000 ML 1,000 ML ONE (23:22)
[2020-07-20] MEDS ORDERED: Zofran 4 MG/2 ML VIAL ONE (23:22)
[2020-07-20 23:33] LABS: Absolute Neutrophil Ct (ANC) 4.87 (1.4-6.9); BASOPHIL % 0.3 % (0.0-0.4); Basophil (Absolute #) 0.03 (0-0.4); Eosinophil % 1.7 % (0.00-5.0); Eosinophil (Absolute #) 0.16 (0-0.5); Hemoglobin 12.6 gm/dl (12.0-16.0); Lymphocytes % 40.5 % (24.0-44.0); Mean Cell Volume 94.8 fl (78-100); Mean Corpuscular Hemoglobin 29.9 pg (26-32); Mean Corpuscular Hgb Concent. 31.5 g/dl (32-36); Mean Platelet Volume 10.8 fl (7.5-11.0); Monocyte (Absolute #) 0.68 (0.0-1.3); Monocytes % 7.1 % (0.0-12.0); Neutrophil % 50.4 % (36.0-66.0); Platelet Count 364 K/mm3 (150-450); Red Blood Count 4.22 M/mm3 (4.1-5.4); Red Cell Distribution Width 12.4 % (11.5-14.0); White Blood Count 9.6 K/mm3 (4.0-10.5)
[2020-07-20 23:46] LABS: ALBUMIN 4.6 g/dL (3.5-5.0); ALKALINE PHOSPHATASE 84 U/L (38-126); ANION GAP 13.3 MEQ/L (5-15); BLOOD UREA NITROGEN 15 mg/dL (7-17); CHLORIDE 104 mmol/L (98-107); Calcium 9.9 mg/dL (8.4-10.2); Carbon Dioxide 25 mmol/L (22-30); Creatinine 1 0.87 mg/dL (0.52-1.04); EST GLOMERULAR FILTRATION RATE > 60.0 ML/MIN; Glucose 113 mg/dL (74-106); Potassium 3.8 mmol/L (3.5-5.1); SGOT/AST 21 U/L (14-36); SGPT/ALT 27 U/L (0-35); SODIUM 139 mmol/L (137-145); Total Protein 7.9 g/dL (6.3-8.2)
[2020-07-21 00:49] VITALS: BP 126/82; PULSE 74
--- NOTE | 2020-07-21 09:59 | XRAY ---
Indication: Right lower quadrant pain and nausea. Multiple contiguous axial images obtained through the abdomen and pelvis using 80 cc Isovue 370 contrast. Comparison: May 14, 2020. Lung bases remain clear. Heart is not enlarged. Stomach is mildly distended with food/fluid. Gallbladder contracted without gallstones. Noncontrasted stomach and bowel loops appear nonobstructed. Again appendectomy. Mild fecal debris predominantly in the right hemicolon. No free fluid/air. Remaining liver, gallbladder, pancreas, spleen, adrenal glands, kidneys, ureters, bladder, uterus, and aorta appear unremarkable. No pathologic retroperitoneal lymphadenopathy. Osseous structures intact. Impression: Negative CT abdomen/pelvis with contrast exam. Comment: Preliminary interpretation was made by [facility]. No critical discrepancy.
[2020-07-24 17:03] VITALS: O2SAT 99
== END 2020-07-21 00:49 | disposition home or self-care (01) ==
LOC: ED 21:53
DX: R10.9 Unspecified abdominal pain (principal); R10.31 Right lower quadrant pain; R11.0 Nausea
CPT/HCPCS: 36000; 36415; 74177; 80053; 81001; 83690; 84703; 85025; 96360; 96374; 96375; 99284; J1885; J2405

== ENCOUNTER 2021-03-02 05:31 | Emergency (ER) | payer OTHER ==
[2021-03-02] MEDS ORDERED: Sodium Chloride 0.9% 1000 ML 1,000 ML IV STA (05:53)
--- NOTE | 2021-03-02 06:03 | ERPHSYRPT ---
- History of Present Illness Source: patient Exam Limitations: no limitations Timing/Duration: hour(s) (16) Activites at Onset: sexual activity Quality: burning, fullness, pressure Onset Location: suprapubic, generalized flank (Left) Pain Radiation: back, suprapubic, left flank Severity of Pain-Max: moderate Severity of Pain-Current: moderate Prior abdominal problems: none Sexual intercourse history: pain with intercourse, unprotected intercourse Modifying Factors: Improves With: nothing Associated Symptoms: abdominal pain, dysuria, polyuria, urinary frequency Hx Tetanus, Diphtheria Vaccination/Date Given: Yes Hx Influenza Vaccination/Date Given: No Hx Pneumococcal Vaccination/Date Given: No <BLANKA VALDIVIA - Last Filed: 03/02/21 06:39> <YASMIN THOMAS - Last Filed: 03/02/21 08:09> - History of Present Illness Time Seen by Provider: 03/02/21 05:58 Physician History: Patient is a 20-year-old female who presents with a complaint of burning with urination. In addition she has noted left flank pain pain with intercourse especially deep penetration she also wants to have a test done since she has unprotected intercourse frequently is on Depo which is about to . She denies any fever chills or sweats. Symptoms started about 3 PM Thursday or 15 hours ago (BLANKA VALDIVIA) Allergies/Adverse Reactions: cephalexin monohydrate [From Keflex] Allergy (Mild, Verified 03/02/21 05:44) Hives Home Medications: Medroxyprogesterone Acetate 1 ml IM 03/02/21 [History] - Review of Systems Constitutional: No Fever, No Chills Eyes: No Symptoms Ears, Nose, & Throat: No Symptoms Respiratory: No Cough, No Dyspnea Cardiac: No Chest Pain, No Edema, No Syncope Abdominal/Gastrointestinal: No Abdominal Pain, No Nausea, No Vomiting, No D iarrhea Genitourinary Symptoms: Dysuria, Frequency, Urgency, Flank Pain Musculoskeletal: No Back Pain, No Neck Pain Skin: No Rash Neurological: No Dizziness, No Focal Weakness, No Sensory Changes Psychological: No Symptoms Endocrine: No Symptoms All Other Systems: Reviewed and Negative <BLANKA VALDIVIA - Last Filed: 03/02/21 06:39> - Past Medical History Pertinent Past Medical History: No Neurological History: No Pertinent History ENT History: No Pertinent History Cardiac History: No Pertinent History Respiratory History: No Pertinent History Endocrine Medical History: No Pertinent History Musculoskeletal History: No Pertinent History GI Medical History: No Pertinent History History: No Pertinent History Psycho-Social History: Anxiety, Depression Female Reproductive Disorders: No Pertinent History - Past Surgical History Past Surgical History: Yes Neuro Surgical History: No Pertinent History Cardiac: No Pertinent History Respiratory: No Pertinent History Gastrointestinal: Appendectomy Genitourinary: No Pertinent History Musculoskeletal: No Pertinent History Female Surgical History: No Pertinent History - Social History Smoking Status: Former smoker How long have you smoked: 0.2 Exposure to second hand smoke: Yes Drug Use: none Patient Lives Alone: Yes <CLEVEMARÍABLANKA Filed: 03/02/21 06:39> - Physical Exam General Appearance: mild distress, alert Eye Exam: PERRL/EOMI, eyes nml inspection Ears, Nose, Throat Exam: normal ENT inspection, TMs normal, pharynx normal, moist mucous membranes Neck Exam: normal inspection, non-tender, supple, full range of motion Respiratory Exam: normal breath sounds, lungs clear, No respiratory distress Cardiovascular Exam: regular rate/rhythm, normal heart sounds, normal peripheral pulses Gastrointestinal/Abdomen Exam: soft, tenderness (Suprapubic), No mass Pelvic Exam: not done Back Exam: normal inspection, normal range of motion, CVA tenderness (Left), No vertebral tenderness Extremity Exam: normal inspection, normal range of motion, pelvis stable Neurologic Exam: alert, oriented x 3, cooperative, application development consultant II-XII nml as tested, normal mood/affect, sensation nml, No motor deficits Skin Exam: normal color, warm, dry Lymphatic Exam: No adenopathy <SHEABLANKA Filed: 03/02/21 06:39> - Nursing Vital Signs Nursing Vital Signs: Initial Vital Signs Pulse Rate 76 03/02/21 05:32 Respiratory Rate 16 03/02/21 05:32 Blood Pressure 139/70 03/02/21 05:32 O2 Sat by Pulse Oximetry 98 03/02/21 05:32 Pain Scale Pain Intensity 9 - Course Nursing assessment & vital signs reviewed: Yes <CLEVEMARÍABLANKA Jaime Filed: 03/02/21 06:39> Ordered Tests: Active Orders 24 hr Category Date Time Status IV Insertion STAT Care 03/02/21 05:53 Active CBC W DIFF Stat Lab 03/02/21 07:19 Completed CMP Stat Lab 03/02/21 07:19 Completed HCG,QUALITATIVE URINE Stat Lab 03/02/21 06:07 Completed LIPASE Stat Lab 03/02/21 07:19 Completed Lactic Acid Stat Lab 03/02/21 06:18 Completed UA W/RFX UR CULTURE Stat Lab 03/02/21 06:07 Completed Medication Summary Discontinued Medications Generic Name Dose Route Start Last Admin Trade Name [place] PRN Reason Stop Dose Admin Azithromycin 2,000 mg 03/02/21 07:39 03/02/21 08:01 Zithromax 250 Mg Tablet PO 03/02/21 07:40 2,000 mg STAT ONE Administration Azithromycin Confirm 03/02/21 07:42 Zithromax 250 Mg Tablet Administered 03/02/21 07:43 Dose 2,000 mg .ROUTE .STK-MED ONE Gentamicin Sulfate 240 mg 03/02/21 07:41 03/02/21 08:01 Garamycin Inj IM 03/02/21 07:42 240 mg STAT ONE Administration Sodium Chloride 1,000 mls @ 999 mls/hr 03/02/21 05:53 03/02/21 07:26 Sodium Chloride 0.9% 1000 Ml IV 03/02/21 06:53 Infused .Q1H1M STA Infusion Sodium Chloride Confirm 03/02/21 06:04 Sodium Chloride 0.9% 1000 Ml Administered 03/02/21 06:05 Dose 1,000 mls @ ud .ROUTE .STK-MED ONE Lab/Rad Data: Laboratory Result Diagrams 03/02/21 07:19 03/02/21 07:19 Laboratory Results 03/02/21 03/02/21 03/02/21 Range/Units 07:19 07:19 06:18 WBC 8.9 (4.0-10.5) K/mm3 RBC 4.07 L (4.1-5.4) M/mm3 Hgb 12.3 (12.0-16.0) gm/dl Hct 39.0 (35-47) % MCV 95.8 (78-100) fl MCH 30.2 (26-32) pg MCHC 31.5 L (32-36) g/dl RDW 12.7 (11.5-14.0) % Plt Count 342 (150-450) K/mm3 MPV 11.8 H (7.5-11.0) fl Gran % 50.3 (36.0-66.0) % Eos # (Auto) 0.12 (0-0.5) Absolute Lymphs (auto) 3.77 (1.0-4.6) Absolute Monos (auto) 0.49 (0.0-1.3) Lymphocytes % 42.5 (24.0-44.0) % Monocytes % 5.5 (0.0-12.0) % Eosinophils % 1.4 (0.00-5.0) % Basophils % 0.3 (0.0-0.4) % Absolute Granulocytes 4.46 (1.4-6.9) Basophils # 0.03 (0-0.4) Sodium 143 (137-145) mmol/L Potassium 4.2 (3.5-5.1) mmol/L Chloride 109 H (98-107) mmol/L Carbon Dioxide 22 (22-30) mmol/L Anion Gap 16.1 H (5-15) MEQ/L BUN 17 (7-17) mg/dL Creatinine 0.85 (0.52-1.04) mg/dL Estimated GFR > 60.0 ML/MIN Glucose 90 (74-106) mg/dL Lactic Acid 1.0 (0.4-2.0) Calcium 9.7 (8.4-10.2) mg/dL Total Bilirubin 0.30 (0.2-1.3) mg/dL AST 22 (14-36) U/L ALT 23 (0-35) U/L Alkaline Phosphatase 88 (38-126) U/L Serum Total Protein 7.5 (6.3-8.2) g/dL Albumin 4.5 (3.5-5.0) g/dL Lipase 85 (23-300) U/L Urine Color (YELLOW) Urine Appearance (CLEAR) Urine pH (5-6) Ur Specific [place] (1.005-1.025) Urine Protein (Negative) Urine Ketones (NEGATIVE) Urine Blood (0-5) Virgil/ul Urine Nitrite (NEGATIVE) Urine Bilirubin (NEGATIVE) Urine Urobilinogen (0-1) mg/dL Ur Leukocyte Esterase (NEGATIVE) Urine WBC (Auto) (0-5) /HPF Urine RBC (Auto) (0-2) /HPF U Epithel Cells (Auto) (FEW) /HPF Urine Bacteria (Auto) (NEGATIVE) /HPF Urine Mucus (Auto) (NEGATIVE) /HPF Urine Culture Reflexed (NO) Urine Glucose (NEGATIVE) mg/dL Urine HCG, Qual (Negative) 03/02/21 03/02/21 Range/Units 06:07 06:07 WBC (4.0-10.5) K/mm3 RBC (4.1-5.4) M/mm3 Hgb (12.0-16.0) gm/dl Hct (35-47) % MCV (78-100) fl MCH (26-32) pg MCHC (32-36) g/dl RDW (11.5-14.0) % Plt Count (150-450) K/mm3 MPV (7.5-11.0) fl Gran % (36.0-66.0) % Eos # (Auto) (0-0.5) Absolute Lymphs (auto) (1.0-4.6) Absolute Monos (auto) (0.0-1.3) Lymphocytes % (24.0-44.0) % Monocytes % (0.0-12.0) % Eosinophils % (0.00-5.0) % Basophils % (0.0-0.4) % Absolute Granulocytes (1.4-6.9) Basophils # (0-0.4) Sodium (137-145) mmol/L Potassium (3.5-5.1) mmol/L Chloride (98-107) mmol/L Carbon Dioxide (22-30) mmol/L Anion Gap (5-15) MEQ/L BUN (7-17) mg/dL Creatinine (0.52-1.04) mg/dL Estimated GFR ML/MIN Glucose (74-106) mg/dL Lactic Acid (0.4-2.0) Calcium (8.4-10.2) mg/dL Total Bilirubin (0.2-1.3) mg/dL AST (14-36) U/L ALT (0-35) U/L Alkaline Phosphatase (38-126) U/L Serum Total Protein (6.3-8.2) g/dL Albumin (3.5-5.0) g/dL Lipase (23-300) U/L Urine Color YELLOW (YELLOW) Urine Appearance SLIGHTLY CLOUDY (CLEAR) Urine pH 5.0 (5-6) Ur Specific [place] 1.028 (1.005-1.025) Urine Protein 30 (Negative) Urine Ketones NEGATIVE (NEGATIVE) Urine Blood NEGATIVE (0-5) Virgil/ul Urine Nitrite NEGATIVE (NEGATIVE) Urine Bilirubin NEGATIVE (NEGATIVE) Urine Urobilinogen NEGATIVE (0-1) mg/dL Ur Leukocyte Esterase TRACE (NEGATIVE) Urine WBC (Auto) 6-10 (0-5) /HPF Urine RBC (Auto) NONE (0-2) /HPF U Epithel Cells (Auto) RARE (FEW) /HPF Urine Bacteria (Auto) NONE (NEGATIVE) /HPF Urine Mucus (Auto) SLIGHT (NEGATIVE) /HPF Urine Culture Reflexed NO (NO) Urine Glucose NEGATIVE (NEGATIVE) mg/dL Urine HCG, Qual NEGATIVE (Negative) - Progress Progress: unchanged Air Movement: good Blood Culture(s) Obtained: No <BLANKA VALDIVIA - Last Filed: 03/02/21 06:39> - Progress Counseled pt/family regarding: lab results, diagnosis, need for follow-up <YASMIN THOMAS - Last Filed: 03/02/21 08:09> - Departure Departure Disposition: Home Critical Care Time: No <BLANKA VALDIVIA - Last Filed: 03/02/21 06:39> - Departure Departure Disposition: Home <YASMIN THOMAS - Last Filed: 03/02/21 08:09> - Departure Clinical Impression: Pelvic inflammatory disease (PID) Urinary tract infection Qualifiers: Urinary tract infection type: acute cystitis Hematuria presence: without hematuria Qualified Code(s): N30.00 - Acute cystitis without hematuria Condition: Stable Referrals: DAVID HATFIELD [Primary Care Provider] - Follow Up with PCP/3 days Instructions: Urinary Tract Infection, Adult (DC), Pelvic Inflammatory Disease (DC) Additional Instructions: Discharge/Care Plan LUISITO FERNANDEZ was seen on 03/02/21 in the Emergency Room. The patient was counseled regarding Diagnosis,Lab results, Imaging studies, need for follow up and when to return to the Emergency Room. Prescriptions given: Discharge Note I have spoken with the patient and/or caregivers. I have explained the patient's condition, diagnosis and treatment plan based on the information available to me at this time. I have answered the patient's and/or caregiver's questions and addressed any concerns. The patient and/or caregivers have as good understanding of the patient's diagnosis, condition and treatment plan as can be expected at this point. The vital signs have been stable. The patient's condition is stable and appropriate for discharge from the emergency department. The patient will pursue further outpatient evaluation with the primary care physician or other designated or consulting physician as outlined in the discharge instructions. The patient and/or caregivers are agreeable to this plan of care and follow-up instructions have been explained in detail. The patient and/or caregivers have received these instruction. The patient/and or caregivers are aware that any significant change in condition or worsening of symptoms should prompt an immediate return to this or the closest emergency department or call 911. LUISITO FERNANDEZ was seen on 03/02/21 n the Emergency Room. At that time you were treated for an emergent condition, during your visit Laboratory, Radiology and/or other procedures may have been ordered. It is very important that you follow-up with your Primary Care Physician DAVID HATFIELD within the next 24-48 hours to review your Emergency Room visit and the final results of testing that was ordered. Some test results such as Urine Cultures, Blood Cultures, and other cultures if ordered will not be finalized for 24-48 hours. If you do not have a Primary Care Provider please call the medical records department at [phone] to obtain a copy of your results or you may sign into our patient portal to obtain these results by visiting us @ [email or web address] and completing the following steps: 1. Click on the Patient Portal link 2. Click the Patient Self Enrollment Link to complete the enrollment form and entering your 3. Once the enrollment form is completed you will receive an email with a temporary ID and password at the email address you provided. 4. Next choose a user name and password. Your user name must be at least 4 characters long and your password must be at least 4 characters long. 5. Choose a security question from the list and provide your answer to the question. If you already have signed into the Health Portal you may access your Health Care Information 15/12 by the following steps: 1. Login to our website @ [email or web address] 2. Enter your original user name and password. FAQS The [facility] Portal is an online tool that contains your Lab Results, Radiology Reports, Visit History, Discharge Instructions and Health Summary Lab and Radiology Results will not be available for 72 hours on the portal. The Portal is a secure site, passwords are encryted and URLs are re-written so they cannot be copied and pasted. You and authorized family members are the only ones who can access your Portal. Also there is a timeout feature that protects your information if you leave the Portal page open. If you have technical difficulty please use the Contact Us link on the page this will allow you to submit any questions you have regarding the Portal or you may contact the Medical Record Department at [phone]. Prescriptions: Doxycycline Hyclate 100 mg PO BID #14 tablet
[2021-03-02] MEDS ORDERED: Sodium Chloride 0.9% 1000 ML 1,000 ML ONE (06:04)
[2021-03-02 06:17] LABS: Appearance SLIGHTLY CLOUDY (CLEAR); Bilirubin NEGATIVE (NEGATIVE); Blood NEGATIVE Ery/ul (0-5); Epithelial Cells RARE /HPF (FEW); Glucose NEGATIVE (NEGATIVE); Ketones NEGATIVE (NEGATIVE); Leukocyte Esterase TRACE (NEGATIVE); Mucus SLIGHT /HPF (NEGATIVE); Nitrite NEGATIVE (NEGATIVE); Protein,Urine Dip 30 (Negative); Specific Gravity 1.028 (1.005-1.025); Urobilinogen NEGATIVE mg/dL (0-1)
[2021-03-02 07:21] LABS: Absolute Neutrophil Ct (ANC) 4.46 (1.4-6.9); BASOPHIL % 0.3 % (0.0-0.4); Basophil (Absolute #) 0.03 (0-0.4); Eosinophil % 1.4 % (0.00-5.0); Eosinophil (Absolute #) 0.12 (0-0.5); Hemoglobin 12.3 gm/dl (12.0-16.0); Lymphocyte (Absolute #) 3.77 (1.0-4.6); Lymphocytes % 42.5 % (24.0-44.0); Mean Cell Volume 95.8 fl (78-100); Mean Corpuscular Hemoglobin 30.2 pg (26-32); Mean Corpuscular Hgb Concent. 31.5 g/dl (32-36); Mean Platelet Volume 11.8 fl (7.5-11.0); Monocyte (Absolute #) 0.49 (0.0-1.3); Monocytes % 5.5 % (0.0-12.0); Neutrophil % 50.3 % (36.0-66.0); Platelet Count 342 K/mm3 (150-450); Red Blood Count 4.07 M/mm3 (4.1-5.4); Red Cell Distribution Width 12.7 % (11.5-14.0); White Blood Count 8.9 K/mm3 (4.0-10.5)
[2021-03-02 07:31] LABS: ALBUMIN 4.5 g/dL (3.5-5.0); ALKALINE PHOSPHATASE 88 U/L (38-126); ANION GAP 16.1 MEQ/L (5-15); BLOOD UREA NITROGEN 17 mg/dL (7-17); CHLORIDE 109 mmol/L (98-107); Calcium 9.7 mg/dL (8.4-10.2); Carbon Dioxide 22 mmol/L (22-30); Creatinine 1 0.85 mg/dL (0.52-1.04); EST GLOMERULAR FILTRATION RATE > 60.0 ML/MIN; Glucose 90 mg/dL (74-106); LIPASE 85 U/L (23-300); Potassium 4.2 mmol/L (3.5-5.1); SGOT/AST 22 U/L (14-36); SGPT/ALT 23 U/L (0-35); SODIUM 143 mmol/L (137-145); Total Protein 7.5 g/dL (6.3-8.2)
[2021-03-02] MEDS ORDERED: Zithromax 250 MG TABLET PO ONE (07:39)
[2021-03-02] MEDS ORDERED: GARAMYCIN INJ IM ONE (07:41)
[2021-03-02] MEDS ORDERED: Zithromax 250 MG TABLET ONE (07:42)
[2021-03-02 08:17] VITALS: BP 119/77; PULSE 85; O2SAT 97
[2021-03-02 08:43] LABS: CHLAMYDIA DNA NOT DETECTED (NEGATIVE); GC DNA Probe NOT DETECTED (NEGATIVE)
== END 2021-03-02 08:39 | disposition home or self-care (01) ==
LOC: ED 05:31
DX: N30.00 Acute cystitis without hematuria (principal); N73.9 Female pelvic inflammatory disease, unspecified; R10.9 Unspecified abdominal pain; R30.0 Dysuria
CPT/HCPCS: 36000; 36415; 80053; 81001; 83605; 83690; 84703; 85025; 87491; 87591; 96360; 96372; 99284; J1580; A9270-GY

== ENCOUNTER 2022-03-09 17:21 | Emergency (ER) | payer OTHER ==
[2022-03-09] MEDS ORDERED: Zofran 4 MG/2 ML VIAL IV ONE (17:41)
[2022-03-09] MEDS ORDERED: SUBLIMAZE 100 MCG/2 ML IV ONE (17:41)
[2022-03-09] MEDS ORDERED: Sodium Chloride 0.9% 1000 ML 1,000 ML IV STA (17:41)
[2022-03-09] MEDS ORDERED: Zofran 4 MG/2 ML VIAL ONE (17:49)
[2022-03-09] MEDS ORDERED: SUBLIMAZE 100 MCG/2 ML ONE (17:49)
[2022-03-09] MEDS ORDERED: Sodium Chloride 0.9% 1000 ML 1,000 ML ONE (17:50)
[2022-03-09 17:53] LABS: Absolute Neutrophil Ct (ANC) 4.36 x10^3/uL (1.4-6.9); Basophil (Absolute #) 0.05 x10^3/uL (0-0.4); Eosinophil % 1.9 % (0.00-5.0); Eosinophil (Absolute #) 0.15 x10^3/uL (0-0.5); Hemoglobin 13.5 g/dL (12.0-16.0); Lymphocyte (Absolute #) 3.02 x10^3/uL (1.0-4.6); Lymphocytes % 37.9 % (24.0-44.0); Mean Cell Volume 95.6 fL (78-100); Mean Corpuscular Hgb Concent. 31.4 g/dL (32-36); Mean Platelet Volume 11.5 fL (7.5-11.0); Monocyte (Absolute #) 0.37 x10^3/uL (0.0-1.3); Monocytes % 4.6 % (0.0-12.0); Neutrophil % 54.9 % (36.0-66.0); Platelet Count 297 x10^3/uL (150-450); Red Cell Distribution Width 12.1 % (11.5-14.0)
--- NOTE | 2022-03-09 17:55 | ERPHSYRPT ---
- History of Present Illness Historian: patient Exam Limitations: no limitations Patient Subjective Stated Complaint: pt reports abd pain x 2 days, reports vaginal bleeding beginning today, states she stopped her depo bc shot in May and has not had a period in 6 years Triage Nursing Assessment: pt is aox3, pupils perrl, afebrile, resps easy and non labored, radial pulses strong and equal, cap refill < 3 seconds, pt abd soft tender to the mid lower abdomen, pt skin pink warm dry. Timing/Duration: day(s) (two days) Activities at Onset: none Quality: cramping Abdominal Pain Onset Location: suprapubic Pain Radiation: groin Severity of Pain-Max: moderate Severity of Pain-Current: moderate Modifying Factors: Improves With: nothing Associated Symptoms: denies symptoms Previous symptoms: same symptoms as today Hx Tetanus, Diphtheria Vaccination/Date Given: Yes Hx Influenza Vaccination/Date Given: No Hx Pneumococcal Vaccination/Date Given: No Immunizations Up to Date: Yes - History of Present Illness Time Seen by Provider: 03/09/22 17:52 Physician History: pt reports abdominal pain x 2 days, reports vaginal bleeding beginning today, states she stopped her depo bc shot in May and has not had a period in 6 years Patient is 21-year-old female started having abdominal pain for last 2 days pain is mainly in the supra pubic area cramping in nature radiating in the perianal area. Patient has been on control pill for 7 years and stopped taking control pill injection in May and she recently just started having a light period. Patient also having a off-and-on difficulty during his sexual intercourse. Patient denies any nausea vomiting blood in your stool or urine. (WILLIAM,YASMIN) Allergies/Adverse Reactions: cephalexin monohydrate [From Keflex] Allergy (Mild, Verified 03/02/21 05:44) Hives Home Medications: Medroxyprogesterone Acetate 1 ml IM 03/02/21 [History] Travel Risk - International Travel Have you traveled outside of the country in past 3 weeks: No - Coronavirus Screening Are you exhibiting any of the following symptoms?: No - Vaccine Status Have you recieved a Covid-19 vaccination: No - Review of Systems Constitutional: No Fever, No Chills Eyes: No Symptoms Ears, Nose, & Throat: No Symptoms Respiratory: No Cough, No Dyspnea Cardiac: No Chest Pain, No Edema, No Syncope Abdominal/Gastrointestinal: Abdominal Pain, No Nausea, No Vomiting, No Diarrhea, No Constipation, No Hematemesis, No Hematochezia, No Melena, No Dysphagia, No Appetite Changes Genitourinary Symptoms: Vaginal Bleeding, No Dysuria, No Musculoskeletal: No Back Pain, No Neck Pain Skin: No Rash Neurological: No Dizziness, No Focal Weakness, No Sensory Changes Psychological: No Symptoms Endocrine: No Symptoms All Other Systems: Reviewed and Negative - Past Medical History Pertinent Past Medical History: No Neurological History: No Pertinent History ENT History: No Pertinent History Cardiac History: No Pertinent History Respiratory History: No Pertinent History Endocrine Medical History: No Pertinent History Musculoskeletal History: No Pertinent History GI Medical History: No Pertinent History History: No Pertinent History Psycho-Social History: Anxiety, Depression Female Reproductive Disorders: No Pertinent History, Pelvic Inflammatory Disease Other Medical History: PTSD. HPV. PID - Past Surgical History Past Surgical History: Yes Neuro Surgical History: No Pertinent History Cardiac: No Pertinent History Respiratory: No Pertinent History Gastrointestinal: Appendectomy Genitourinary: No Pertinent History Musculoskeletal: No Pertinent History Female Surgical History: No Pertinent History - Social History Smoking Status: Never smoker How long have you smoked: 0.2 Exposure to second hand smoke: Yes Drug Use: none Patient Lives Alone: No - Female History Hx Last Menstrual Period: 03/09/22 Hx Now: (unk) - Physical Exam General Appearance: no apparent distress, alert Eye Exam: PERRL/EOMI, eyes nml inspection Ears, Nose, Throat Exam: normal ENT inspection, pharynx normal, moist mucous membranes Neck Exam: normal inspection, non-tender, supple, full range of motion Respiratory Exam: normal breath sounds, lungs clear, No respiratory distress Cardiovascular Exam: regular rate/rhythm, normal heart sounds Gastrointestinal/Abdomen Exam: soft, tenderness (suprapubic area), No mass Back Exam: normal inspection, normal range of motion, No CVA tenderness, No vertebral tenderness Extremity Exam: normal inspection, normal range of motion, pelvis stable Neurologic Exam: alert, oriented x 3, cooperative, normal mood/affect, nml cerebellar function, sensation nml, No motor deficits Skin Exam: normal color, warm, dry SpO2: 98 - Nursing Vital Signs Nursing Vital Signs: Initial Vital Signs Temperature 97.8 F 03/09/22 17:23 Pulse Rate 76 03/09/22 17:23 Respiratory Rate 16 03/09/22 17:23 Blood Pressure 154/109 03/09/22 17:23 O2 Sat by Pulse Oximetry 98 03/09/22 17:23 Pain Scale Pain Intensity 4 - Course Nursing assessment & vital signs reviewed: Yes - CT Exams Abdomen/Pelvis CT Interpretation: Tele-radiologist Report Ordered Tests: Active Orders 24 hr Category Date Time Status IV Insertion STAT Care 03/09/22 17:43 Active ABDOMEN AND PELVIS W/0 CONTRAS [CT] Stat Exams 03/09/22 18:19 Taken AMYLASE Stat Lab 03/09/22 17:49 Completed CBC W DIFF Stat Lab 03/09/22 17:49 Completed CMP Stat Lab 03/09/22 17:49 Completed CULTURE,URINE Stat Lab 03/09/22 18:43 Received HCG QUALITATIVE,SERUM Stat Lab 03/09/22 17:49 Completed LIPASE Stat Lab 03/09/22 17:49 Completed UA W/RFX CULTURE Stat Lab 03/09/22 18:43 Completed Medication Summary Discontinued Medications Generic Name Dose Route Start Last Admin Trade Name [place] PRN Reason Stop Dose Admin Ciprofloxacin 500 mg 03/09/22 18:54 03/09/22 19:02 Ciprofloxacin 500 Mg Tablet PO 03/09/22 18:55 500 mg STAT ONE Administration Ciprofloxacin Confirm 03/09/22 19:02 Ciprofloxacin 500 Mg Tablet Administered 03/09/22 19:03 Dose 500 mg .ROUTE .STK-MED ONE Fentanyl Citrate 50 mcg 03/09/22 17:41 03/09/22 17:52 Fentanyl Citrate 100 Mcg/2 Ml* Vial IV 03/09/22 17:42 50 mcg STAT ONE Administration Fentanyl Citrate Confirm 03/09/22 17:49 Fentanyl Citrate 100 Mcg/2 Ml* Vial Administered 03/09/22 17:50 Dose 100 mcg .ROUTE .STK-MED ONE Sodium Chloride 1,000 mls @ 999 mls/hr 03/09/22 17:41 03/09/22 17:51 Sodium Chloride 0.9% 1000 Ml IV 03/09/22 18:41 999 mls/hr .Q1H1M STA Administration Sodium Chloride Confirm 03/09/22 17:50 Sodium Chloride 0.9% 1000 Ml Administered 03/09/22 17:51 Dose 1,000 mls @ ud .ROUTE .STK-MED ONE Ondansetron HCl 4 mg 03/09/22 17:41 03/09/22 17:52 Ondansetron Hcl 4 Mg/2 Ml Vial IV 03/09/22 17:42 4 mg STAT ONE Administration Ondansetron HCl Confirm 03/09/22 17:49 Ondansetron Hcl 4 Mg/2 Ml Vial Administered 03/09/22 17:50 Dose 4 mg .ROUTE .STK-MED ONE Lab/Rad Data: Laboratory Result Diagrams 03/09/22 17:49 03/09/22 17:49 Laboratory Results 03/09/22 03/09/22 03/09/22 Range/Units 18:43 17:49 17:49 WBC (4.0-10.5) x10^3/uL RBC (4.1-5.4) x10^6/uL Hgb (12.0-16.0) g/dL Hct (35-47) % MCV (78-100) fL MCH (26-32) pg MCHC (32-36) g/dL RDW (11.5-14.0) % Plt Count (150-450) x10^3/uL MPV (7.5-11.0) fL Gran % (36.0-66.0) % Immature Gran % (Auto) (0.00-0.4) % Nucleat RBC Rel Count (0.00-0.1) % Eos # (Auto) (0-0.5) x10^3/uL Immature Gran # (Auto) (0.00-0.03) x10^3u/L Absolute Lymphs (auto) (1.0-4.6) x10^3/uL Absolute Monos (auto) (0.0-1.3) x10^3/uL Absolute Nucleated RBC (0.00-0.01) x10^3u/L Lymphocytes % (24.0-44.0) % Monocytes % (0.0-12.0) % Eosinophils % (0.00-5.0) % Basophils % (0.0-0.4) % Absolute Granulocytes (1.4-6.9) x10^3/uL Basophils # (0-0.4) x10^3/uL Sodium 139 (137-145) mmol/L Potassium 4.9 (3.5-5.1) mmol/L Chloride 108 H (98-107) mmol/L Carbon Dioxide 20 L (22-30) mmol/L Anion Gap 16.2 H (5-15) MEQ/L BUN 12 (7-17) mg/dL Creatinine 0.74 (0.52-1.04) mg/dL Estimated GFR > 60.0 ML/MIN Glucose 121 H (74-106) mg/dL Calcium 9.6 (8.4-10.2) mg/dL Total Bilirubin 0.50 (0.2-1.3) mg/dL AST 26 (14-36) U/L ALT 26 (0-35) U/L Alkaline Phosphatase 89 (38-126) U/L Serum Total Protein 7.7 (6.3-8.2) g/dL Albumin 4.5 (3.5-5.0) g/dL Amylase 62 (30-110) U/L Lipase 51 (23-300) U/L Serum , Qual NEGATIVE (Negative) Urinalys Dipstick Clnc MAIN LAB Urine Color YELLOW (YELLOW) Urine Appearance SLIGHTLY CLOUDY (CLEAR) Urine pH 5.5 (5-6) Ur Specific [place] >=1.030 (1.005-1.025) POC Urine Protein Conf TRACE (Negative) Urine Ketones NEGATIVE (NEGATIVE) Urine Nitrite NEGATIVE (NEGATIVE) Urine Bilirubin NEGATIVE (NEGATIVE) Urine Urobilinogen 0.2 (0-1) mg/dL Urine Leukocytes TRACE (NEGATIVE) Urine WBC (Auto) 11-15 (0-5) /HPF Urine RBC (Auto) 0-2 (0-2) /HPF U Epithel Cells (Auto) RARE (FEW) /HPF Urine Bacteria (Auto) NONE (NEGATIVE) /HPF Urine RBC LARGE (0-5) Virgil/ul Amorphous Crystals FEW (NEGATIVE) /HPF Urine Mucus (Auto) MODERATE (NEGATIVE) /HPF Ur Culture Indicated? ORDERED SEPARATELY Urine Glucose NEGATIVE (NEGATIVE) mg/dL 03/09/22 Range/Units 17:49 WBC 8.0 (4.0-10.5) x10^3/uL RBC 4.50 (4.1-5.4) x10^6/uL Hgb 13.5 (12.0-16.0) g/dL Hct 43.0 (35-47) % MCV 95.6 (78-100) fL MCH 30.0 (26-32) pg MCHC 31.4 L (32-36) g/dL RDW 12.1 (11.5-14.0) % Plt Count 297 (150-450) x10^3/uL MPV 11.5 H (7.5-11.0) fL Gran % 54.9 (36.0-66.0) % Immature Gran % (Auto) 0.1 (0.00-0.4) % Nucleat RBC Rel Count 0.0 (0.00-0.1) % Eos # (Auto) 0.15 (0-0.5) x10^3/uL Immature Gran # (Auto) 0.01 (0.00-0.03) x10^3u/L Absolute Lymphs (auto) 3.02 (1.0-4.6) x10^3/uL Absolute Monos (auto) 0.37 (0.0-1.3) x10^3/uL Absolute Nucleated RBC 0.00 (0.00-0.01) x10^3u/L Lymphocytes % 37.9 (24.0-44.0) % Monocytes % 4.6 (0.0-12.0) % Eosinophils % 1.9 (0.00-5.0) % Basophils % 0.6 (0.0-0.4) % Absolute Granulocytes 4.36 (1.4-6.9) x10^3/uL Basophils # 0.05 (0-0.4) x10^3/uL Sodium (137-145) mmol/L Potassium (3.5-5.1) mmol/L Chloride (98-107) mmol/L Carbon Dioxide (22-30) mmol/L Anion Gap (5-15) MEQ/L BUN (7-17) mg/dL Creatinine (0.52-1.04) mg/dL Estimated GFR ML/MIN Glucose (74-106) mg/dL Calcium (8.4-10.2) mg/dL Total Bilirubin (0.2-1.3) mg/dL AST (14-36) U/L ALT (0-35) U/L Alkaline Phosphatase (38-126) U/L Serum Total Protein (6.3-8.2) g/dL Albumin (3.5-5.0) g/dL Amylase (30-110) U/L Lipase (23-300) U/L Serum , Qual (Negative) Urinalys Dipstick Clnc Urine Color (YELLOW) Urine Appearance (CLEAR) Urine pH (5-6) Ur Specific [place] (1.005-1.025) POC Urine Protein Conf (Negative) Urine Ketones (NEGATIVE) Urine Nitrite (NEGATIVE) Urine Bilirubin (NEGATIVE) Urine Urobilinogen (0-1) mg/dL Urine Leukocytes (NEGATIVE) Urine WBC (Auto) (0-5) /HPF Urine RBC (Auto) (0-2) /HPF U Epithel Cells (Auto) (FEW) /HPF Urine Bacteria (Auto) (NEGATIVE) /HPF Urine RBC (0-5) Virgil/ul Amorphous Crystals (NEGATIVE) /HPF Urine Mucus (Auto) (NEGATIVE) /HPF Ur Culture Indicated? Urine Glucose (NEGATIVE) mg/dL - Progress Progress: improved, pain not gone completely Counseled pt/family regarding: lab results, diagnosis, need for follow-up, rad results - Progress Progress Note: 03/09/22 19:49 Patient originally seen by daytime physician, Dr. Ibrahim. On my reexam patient's pain has completely resolved. No lower abdominal tenderness, no rebound or guarding. CT scan demonstrates a 4 cm left adnexal cyst. Patient states that she is on day 2 of her period. She states that she is feeling much better. UTI treatment has already been initiated by Dr. Ellsworth. No other obvious lab abnormalities from my perspective. Patient will need abdominal reexam in 24 hours with her PCP. She may return here anytime for new or changing symptoms. (STEPHANIE RICE) - Departure Departure Disposition: Home Critical Care Time: No - Departure Clinical Impression: Pelvic inflammatory disease (PID) UTI (urinary tract infection) Qualifiers: Urinary tract infection type: acute cystitis Hematuria presence: without hematuria Qualified Code(s): N30.00 - Acute cystitis without hematuria Condition: Stable Referrals: DAVID HATFIELD [Primary Care Provider] - Follow up/PCP as directed Instructions: Pelvic Inflammatory Disease, Pelvic Inflammatory Disease (DC), Urinary Tract Infection, Adult (DC) Prescriptions: Nitrofurantoin Macro 100 mg [Macrobid 100MG Capsule] 100 mg PO BID 5 Days cap
[2022-03-09 18:10] LABS: ALBUMIN 4.5 g/dL (3.5-5.0); ALKALINE PHOSPHATASE 89 U/L (38-126); AMYLASE 62 U/L (30-110); ANION GAP 16.2 MEQ/L (5-15); BLOOD UREA NITROGEN 12 mg/dL (7-17); CHLORIDE 108 mmol/L (98-107); Calcium 9.6 mg/dL (8.4-10.2); Carbon Dioxide 20 mmol/L (22-30); Creatinine 1 0.74 mg/dL (0.52-1.04); EST GLOMERULAR FILTRATION RATE > 60.0 ML/MIN; Glucose 121 mg/dL (74-106); LIPASE 51 U/L (23-300); Potassium 4.9 mmol/L (3.5-5.1); SGOT/AST 26 U/L (14-36); SGPT/ALT 26 U/L (0-35); SODIUM 139 mmol/L (137-145); Total Protein 7.7 g/dL (6.3-8.2)
[2022-03-09 18:47] LABS: Appearance SLIGHTLY CLOUDY (CLEAR); Bilirubin NEGATIVE (NEGATIVE); Dipstick done @ ? MAIN LAB; Glucose NEGATIVE (NEGATIVE); Ketones NEGATIVE (NEGATIVE); Nitrite NEGATIVE (NEGATIVE); Ph 5.5 (5-6); Protein,Urine Dip TRACE (Negative); RBC LARGE Ery/ul (0-5); Specific Gravity >=1.030 (1.005-1.025); Urobilinogen 0.2 mg/dL (0-1)
[2022-03-09 18:50] LABS: Amourphous Crystal FEW /HPF (NEGATIVE); Epithelial Cells RARE /HPF (FEW); Mucus MODERATE /HPF (NEGATIVE); RBC 0-2 /HPF (0-2); Urine Cultured Indicated? ORDERED SEPARATELY
[2022-03-09] MEDS ORDERED: Cipro 500 MG PO ONE (18:54)
[2022-03-09] MEDS ORDERED: Cipro 500 MG ONE (19:02)
[2022-03-09 20:14] VITALS: BP 138/92; PULSE 74; O2SAT 98
--- NOTE | 2022-03-10 08:37 | XRAY ---
Indication: Pelvic pain 2 days. Multiple contiguous axial images obtained through the abdomen and pelvis without contrast. Comparison: July 20, 2020 Lung bases remain clear. Heart is not enlarged. Stomach is distended with food/fluid. Noncontrasted stomach and bowel loops appear nonobstructed. Again appendectomy. New 4 cm left ovary cyst. No free fluid/air. Remaining liver, gallbladder, pancreas, spleen, adrenal glands, kidneys, ureters, bladder, uterus, and aorta are unremarkable for noncontrast exam. Osseous structures intact. Impression: 1. New 4 cm left ovary cyst. 2. Remaining CT abdomen/pelvis without contrast exam is negative. Comment: Preliminary interpretation made by [facility]. No critical discrepancy.
--- NOTE | 2022-03-10 08:37 | XRAY ---
Indication: Pelvic pain 2 days. Multiple contiguous axial images obtained through the abdomen and pelvis without contrast. Comparison: July 20, 2020 Lung bases remain clear. Heart is not enlarged. Stomach is distended with food/fluid. Noncontrasted stomach and bowel loops appear nonobstructed. Again appendectomy. New 4 cm left ovary cyst. No free fluid/air. Remaining liver, gallbladder, pancreas, spleen, adrenal glands, kidneys, ureters, bladder, uterus, and aorta are unremarkable for noncontrast exam. Osseous structures intact. Impression: 1. New 4 cm left ovary cyst. 2. Remaining CT abdomen/pelvis without contrast exam is negative. Comment: Preliminary interpretation made by [facility]. No critical discrepancy.
== END 2022-03-09 20:12 | disposition home or self-care (01) ==
LOC: ED 17:21
DX: N73.9 Female pelvic inflammatory disease, unspecified (principal); N30.00 Acute cystitis without hematuria; R10.9 Unspecified abdominal pain; N83.291 Other ovarian cyst, right side
CPT/HCPCS: 36000; 36415; 74176; 80053; 81015; 82150; 83690; 84703; 85025; 87086; 96374; 96375; 99284; J2405; J3010; A9270-GY

== ENCOUNTER 2022-05-01 17:14 | Emergency (ER) | payer OTHER ==
--- NOTE | 2022-05-01 17:46 | ERPHSYRPT ---
- History of Present Illness Time Seen by Provider: 05/01/22 17:46 Source: patient Exam Limitations: no limitations Physician History: This is a 21-year-old white female patient of Dr. Otilio Pringle who is trying to get with her boyfriend and has a history of ovarian cyst. On 03/09/2022 patient had a negative serum test. On 04/11/2022 patient underwent a transabdominal ultrasound to evaluate for ovarian cyst which she had bilaterally. The test was negative for any suspicious solid/cystic mass or fluid in the bilateral adnexa. Patient states that she took home test yesterday evening and it was positive. Today, approximately 1 PM, she had some vaginal bleeding that was spotting. The vaginal flow became a little heavier and she had associated cramping suprapubically. She still has some cramping suprapubically but the bleeding has slowed down significantly. Her last menstrual period was on approximately 04/10/2022. Timing/Duration: today Activites at Onset: none Quality: cramping Onset Location: suprapubic Severity of Pain-Max: mild Severity of Pain-Current: mild Prior abdominal problems: none Modifying Factors: Improves With: nothing Associated Symptoms: denies symptoms Allergies/Adverse Reactions: cephalexin monohydrate [From Keflex] Allergy (Mild, Verified 05/01/22 17:49) Hives Latex, Natural Rubber Allergy (Verified 05/01/22 17:49) Home Medications: Levothyroxine Sodium 1 tab PO DAILY 05/01/22 [History] Hx Tetanus, Diphtheria Vaccination/Date Given: Yes Hx Influenza Vaccination/Date Given: No Hx Pneumococcal Vaccination/Date Given: No Travel Risk - International Travel Have you traveled outside of the country in past 3 weeks: No - Coronavirus Screening Are you exhibiting any of the following symptoms?: No Close contact with a COVID-19 positive Pt in past 14-21 Days: No - Vaccine Status Have you recieved a Covid-19 vaccination: No - Review of Systems Constitutional: No Symptoms Eyes: No Symptoms Ears, Nose, & Throat: No Symptoms Respiratory: No Symptoms Cardiac: No Symptoms Abdominal/Gastrointestinal: Abdominal Pain (Mild suprapubic cramping with palpation) Genitourinary Symptoms: Vaginal Bleeding Musculoskeletal: No Symptoms Skin: No Symptoms Neurological: No Symptoms Psychological: No Symptoms Endocrine: No Symptoms Hematologic/Lymphatic: No Symptoms Immunological/Allergic: No Symptoms All Other Systems: Reviewed and Negative - Past Medical History Pertinent Past Medical History: No Neurological History: No Pertinent History ENT History: No Pertinent History Cardiac History: No Pertinent History Respiratory History: No Pertinent History Endocrine Medical History: No Pertinent History Musculoskeletal History: No Pertinent History GI Medical History: No Pertinent History History: No Pertinent History Psycho-Social History: Anxiety, Depression Female Reproductive Disorders: No Pertinent History, Pelvic Inflammatory Disease Other Medical History: PTSD. HPV. PID - Past Surgical History Past Surgical History: Yes Neuro Surgical History: No Pertinent History Cardiac: No Pertinent History Respiratory: No Pertinent History Gastrointestinal: Appendectomy Genitourinary: No Pertinent History Musculoskeletal: No Pertinent History Female Surgical History: No Pertinent History - Social History Smoking Status: Never smoker How long have you smoked: 0.2 Exposure to second hand smoke: Yes Drug Use: none Patient Lives Alone: No - Nursing Vital Signs Nursing Vital Signs: Initial Vital Signs Temperature 97.7 F 05/01/22 17:51 Pulse Rate 79 05/01/22 17:51 Respiratory Rate 18 05/01/22 17:51 Blood Pressure 110/90 05/01/22 17:51 O2 Sat by Pulse Oximetry 100 05/01/22 17:51 Pain Scale Pain Intensity 6 - Physical Exam General Appearance: no apparent distress, alert, anxiety Eye Exam: PERRL/EOMI, eyes nml inspection Ears, Nose, Throat Exam: normal ENT inspection, moist mucous membranes Neck Exam: normal inspection, non-tender, supple, full range of motion Respiratory Exam: chest tenderness, airway intact, No respiratory distress Gastrointestinal/Abdomen Exam: soft, normal bowel sounds, tenderness (Mild suprapubic to palpation), No guarding, No rebound Pelvic Exam: not done Rectal Exam: not done Back Exam: normal inspection, normal range of motion, No CVA tenderness, No vertebral tenderness Extremity Exam: normal inspection, normal range of motion, pelvis stable Neurologic Exam: alert, oriented x 3, cooperative, homicide investigator II-XII nml as tested, normal mood/affect, nml cerebellar function, nml station & gait, sensation nml Skin Exam: normal color, warm, dry Lymphatic Exam: No adenopathy SpO2 Interpretation: normal O2 Delivery: Room Air - Course Nursing assessment & vital signs reviewed: Yes Ordered Tests: Active Orders 24 hr Category Date Time Status CBC W DIFF Stat Lab 05/01/22 18:20 Completed CMP Stat Lab 05/01/22 19:10 Completed CULTURE,URINE Stat Lab 05/01/22 18:32 Received HCG QUALITATIVE,SERUM Stat Lab 05/01/22 Completed HCG, Quantitative (Inhouse) Stat Lab 05/01/22 18:21 Completed UA W/RFX CULTURE Stat Lab 05/01/22 18:32 Completed Medication Summary Discontinued Medications Generic Name Dose Route Start Last Admin Trade Name [place] PRN Reason Stop Dose Admin Acetaminophen 650 mg 05/01/22 18:20 05/01/22 18:22 Acetaminophen 325 Mg Tablet PO 05/01/22 18:21 650 mg STAT ONE Administration Acetaminophen Confirm 05/01/22 18:21 Acetaminophen 325 Mg Tablet Administered 05/01/22 18:22 Dose 650 mg .ROUTE .Varolii-EpiVax ONE Lab/Rad Data: Laboratory Result Diagrams 05/01/22 18:20 05/01/22 19:10 Laboratory Results 05/01/22 05/01/22 05/01/22 Range/Units Unknown 19:10 18:32 WBC (4.0-10.5) x10^3/uL RBC (4.1-5.4) x10^6/uL Hgb (12.0-16.0) g/dL Hct (35-47) % MCV (78-100) fL MCH (26-32) pg MCHC (32-36) g/dL RDW (11.5-14.0) % Plt Count (150-450) x10^3/uL MPV (7.5-11.0) fL Gran % (36.0-66.0) % Immature Gran % (Auto) (0.00-0.4) % Nucleat RBC Rel Count (0.00-0.1) % Eos # (Auto) (0-0.5) x10^3/uL Immature Gran # (Auto) (0.00-0.03) x10^3u/L Absolute Lymphs (auto) (1.0-4.6) x10^3/uL Absolute Monos (auto) (0.0-1.3) x10^3/uL Absolute Nucleated RBC (0.00-0.01) x10^3u/L Lymphocytes % (24.0-44.0) % Monocytes % (0.0-12.0) % Eosinophils % (0.00-5.0) % Basophils % (0.0-0.4) % Absolute Granulocytes (1.4-6.9) x10^3/uL Basophils # (0-0.4) x10^3/uL Sodium 140 (137-145) mmol/L Potassium 3.6 (3.5-5.1) mmol/L Chloride 104 (98-107) mmol/L Carbon Dioxide 24 (22-30) mmol/L Anion Gap 15.3 H (5-15) MEQ/L BUN 16 (7-17) mg/dL Creatinine 0.75 (0.52-1.04) mg/dL Estimated GFR > 60.0 ML/MIN Glucose 86 (74-106) mg/dL Calcium 9.6 (8.4-10.2) mg/dL Total Bilirubin 0.50 (0.2-1.3) mg/dL AST 31 (14-36) U/L ALT 44 H (0-35) U/L Alkaline Phosphatase 108 (38-126) U/L Serum Total Protein 8.8 H (6.3-8.2) g/dL Albumin 4.9 (3.5-5.0) g/dL Beta HCG, Quant mIU/ml Serum , Qual NEGATIVE (Negative) Urinalys Dipstick Clnc MAIN LAB Urine Color YELLOW (YELLOW) Urine Appearance CLEAR (CLEAR) Urine pH 6.0 (5-6) Ur Specific [place] >=1.030 A (1.005-1.025) POC Urine Protein Conf 30 A (Negative) Urine Ketones SMALL-15 A (NEGATIVE) Urine Nitrite NEGATIVE (NEGATIVE) Urine Bilirubin NEGATIVE (NEGATIVE) Urine Urobilinogen 0.2 (0-1) mg/dL Urine Leukocytes NEGATIVE (NEGATIVE) Urine WBC (Auto) 0-2 (0-5) /HPF Urine RBC (Auto) 51-100 A (0-2) /HPF U Epithel Cells (Auto) Not Reportable Urine Bacteria (Auto) Not Reportable Urine RBC MODERATE A (0-5) Virgil/ul Urine Mucus (Auto) SLIGHT A (NEGATIVE) /HPF Ur Culture Indicated? YES Urine Glucose NEGATIVE (NEGATIVE) mg/dL 05/01/22 05/01/22 Range/Units 18:21 18:20 WBC 6.2 (4.0-10.5) x10^3/uL RBC 4.36 (4.1-5.4) x10^6/uL Hgb 13.0 (12.0-16.0) g/dL Hct 40.6 (35-47) % MCV 93.1 (78-100) fL MCH 29.8 (26-32) pg MCHC 32.0 (32-36) g/dL RDW 12.1 (11.5-14.0) % Plt Count 351 (150-450) x10^3/uL MPV 9.9 (7.5-11.0) fL Gran % 49.0 (36.0-66.0) % Immature Gran % (Auto) 0.0 (0.00-0.4) % Nucleat RBC Rel Count 0.0 (0.00-0.1) % Eos # (Auto) 0.09 (0-0.5) x10^3/uL Immature Gran # (Auto) 0.00 (0.00-0.03) x10^3u/L Absolute Lymphs (auto) 2.64 (1.0-4.6) x10^3/uL Absolute Monos (auto) 0.41 (0.0-1.3) x10^3/uL Absolute Nucleated RBC 0.00 (0.00-0.01) x10^3u/L Lymphocytes % 42.5 (24.0-44.0) % Monocytes % 6.6 (0.0-12.0) % Eosinophils % 1.4 (0.00-5.0) % Basophils % 0.5 (0.0-0.4) % Absolute Granulocytes 3.04 (1.4-6.9) x10^3/uL Basophils # 0.03 (0-0.4) x10^3/uL Sodium (137-145) mmol/L Potassium (3.5-5.1) mmol/L Chloride (98-107) mmol/L Carbon Dioxide (22-30) mmol/L Anion Gap (5-15) MEQ/L BUN (7-17) mg/dL Creatinine (0.52-1.04) mg/dL Estimated GFR ML/MIN Glucose (74-106) mg/dL Calcium (8.4-10.2) mg/dL Total Bilirubin (0.2-1.3) mg/dL AST (14-36) U/L ALT (0-35) U/L Alkaline Phosphatase (38-126) U/L Serum Total Protein (6.3-8.2) g/dL Albumin (3.5-5.0) g/dL Beta HCG, Quant < 2.39 mIU/ml Serum , Qual (Negative) Urinalys Dipstick Clnc Urine Color (YELLOW) Urine Appearance (CLEAR) Urine pH (5-6) Ur Specific [place] (1.005-1.025) POC Urine Protein Conf (Negative) Urine Ketones (NEGATIVE) Urine Nitrite (NEGATIVE) Urine Bilirubin (NEGATIVE) Urine Urobilinogen (0-1) mg/dL Urine Leukocytes (NEGATIVE) Urine WBC (Auto) (0-5) /HPF Urine RBC (Auto) (0-2) /HPF U Epithel Cells (Auto) Urine Bacteria (Auto) Urine RBC (0-5) Virgil/ul Urine Mucus (Auto) (NEGATIVE) /HPF Ur Culture Indicated? Urine Glucose (NEGATIVE) mg/dL - Departure Departure Disposition: Home Clinical Impression: Vaginal bleeding Condition: Stable Critical Care Time: No Referrals: DAVID HATFIELD [Primary Care Provider] - Follow up/PCP as directed Additional Instructions: Drink plenty of fluids. Use Tylenol and ibuprofen for pain control. Follow-up with your primary care provider tomorrow by phone to make arranges for follow-up appointment for further evaluation and management.
[2022-05-01] MEDS ORDERED: TYLENOL 325 MG PO ONE (18:20)
[2022-05-01] MEDS ORDERED: TYLENOL 325 MG ONE (18:21)
[2022-05-01 19:06] LABS: Absolute Neutrophil Ct (ANC) 3.04 x10^3/uL (1.4-6.9); Basophil (Absolute #) 0.03 x10^3/uL (0-0.4); Eosinophil % 1.4 % (0.00-5.0); Eosinophil (Absolute #) 0.09 x10^3/uL (0-0.5); Hematocrit 40.6 % (35-47); Lymphocyte (Absolute #) 2.64 x10^3/uL (1.0-4.6); Lymphocytes % 42.5 % (24.0-44.0); Mean Cell Volume 93.1 fL (78-100); Mean Corpuscular Hemoglobin 29.8 pg (26-32); Mean Platelet Volume 9.9 fL (7.5-11.0); Monocyte (Absolute #) 0.41 x10^3/uL (0.0-1.3); Monocytes % 6.6 % (0.0-12.0); Platelet Count 351 x10^3/uL (150-450); Red Blood Count 4.36 x10^6/uL (4.1-5.4); Red Cell Distribution Width 12.1 % (11.5-14.0); White Blood Count 6.2 x10^3/uL (4.0-10.5)
[2022-05-01 19:20] LABS: ALBUMIN 4.9 g/dL (3.5-5.0); ALKALINE PHOSPHATASE 108 U/L (38-126); ANION GAP 15.3 MEQ/L (5-15); BLOOD UREA NITROGEN 16 mg/dL (7-17); CHLORIDE 104 mmol/L (98-107); Calcium 9.6 mg/dL (8.4-10.2); Carbon Dioxide 24 mmol/L (22-30); Creatinine 1 0.75 mg/dL (0.52-1.04); EST GLOMERULAR FILTRATION RATE > 60.0 ML/MIN; Glucose 86 mg/dL (74-106); Potassium 3.6 mmol/L (3.5-5.1); SGOT/AST 31 U/L (14-36); SGPT/ALT 44 U/L (0-35); SODIUM 140 mmol/L (137-145); Total Protein 8.8 g/dL (6.3-8.2)
[2022-05-01 20:01] LABS: Appearance CLEAR (CLEAR); Bilirubin NEGATIVE (NEGATIVE); Dipstick done @ ? MAIN LAB; Glucose NEGATIVE (NEGATIVE); Ketones SMALL-15 (NEGATIVE); Nitrite NEGATIVE (NEGATIVE); Protein,Urine Dip 30 (Negative); RBC MODERATE Ery/ul (0-5); Specific Gravity >=1.030 (1.005-1.025); Urobilinogen 0.2 mg/dL (0-1)
[2022-05-01 20:06] LABS: Mucus SLIGHT /HPF (NEGATIVE); RBC 51-100 /HPF (0-2); Urine Cultured Indicated? YES; WBC 0-2 /HPF (0-5)
[2022-05-01 20:08] VITALS: O2SAT 100
[2022-05-01] MEDS ORDERED: HYDROCODONE-ACETAMIN 2.5-108/5 ML SOLUTION PO STA (20:17)
[2022-05-01] MEDS ORDERED: HYDROCODONE-ACETAMIN 2.5-108/5 ML SOLUTION ONE (20:25)
[2022-05-01 20:33] VITALS: BP 118/77; PULSE 88
== END 2022-05-01 20:33 | disposition home or self-care (01) ==
LOC: ED 17:14
DX: N93.9 Abnormal uterine and vaginal bleeding, unspecified (principal); R10.2 Pelvic and perineal pain; Z79.899 Other long term (current) drug therapy; Z28.310 Unvaccinated for COVID-19
CPT/HCPCS: 36415; 80053; 81015; 84702; 84703; 85025; 87086; 99283; A9270-GY

== ENCOUNTER 2022-10-21 14:53 | Emergency (ER) | payer OTHER ==
--- NOTE | 2022-10-21 15:03 | ERPHSYRPT ---
- History of Present Illness Time Seen by Provider: 10/21/22 15:02 Historian: patient Exam Limitations: no limitations Physician History: This is a 22-year-old white female patient who has a history of anxiety, depression, PTSD, HPV and PID who is approximately 18 weeks . She presents with relatively sudden onset of right lower quadrant abdominal pain that was sharp and present when she went to urinate. The patient states that the pain nearly completely resolved. However, today, approximately 1445, the pain suddenly returned and has been sharp in the same localized area in the right lower quadrant. She describes the pain is severe. Despite the pain, she did not take any Tylenol. Patient has had an appendectomy in the past. Patient denies vaginal bleeding. Patient has a history of ovarian cyst. Patient states that her obstetric ultrasound showed a single, intrauterine without evidence of an ectopic . Timing/Duration: yesterday Activities at Onset: none Quality: sharpness Abdominal Pain Onset Location: RLQ Pain Radiation: no radiation Severity of Pain-Max: moderate Severity of Pain-Current: moderate Modifying Factors: Improves With: nothing Associated Symptoms: denies symptoms Previous symptoms: no prior history Allergies/Adverse Reactions: cephalexin monohydrate [From Keflex] Allergy (Mild, Verified 10/21/22 15:30) Hives Latex, Natural Rubber Allergy (Verified 10/21/22 15:30) Home Medications: Levothyroxine Sodium 1 tab PO DAILY 05/01/22 [History] Hx Tetanus, Diphtheria Vaccination/Date Given: Yes Hx Influenza Vaccination/Date Given: No Hx Pneumococcal Vaccination/Date Given: No Travel Risk - International Travel Have you traveled outside of the country in past 3 weeks: No - Coronavirus Screening Are you exhibiting any of the following symptoms?: No Close contact with a COVID-19 positive Pt in past 14-21 Days: No - Vaccine Status Have you recieved a Covid-19 vaccination: No - Review of Systems Constitutional: No Symptoms Eyes: No Symptoms Ears, Nose, & Throat: No Symptoms Respiratory: No Symptoms Cardiac: No Symptoms Abdominal/Gastrointestinal: Abdominal Pain (Right lower quadrant) Genitourinary Symptoms: No Symptoms Musculoskeletal: No Symptoms Skin: No Symptoms Neurological: No Symptoms Psychological: No Symptoms Endocrine: No Symptoms Hematologic/Lymphatic: No Symptoms Immunological/Allergic: No Symptoms All Other Systems: Reviewed and Negative - Past Medical History Pertinent Past Medical History: No Neurological History: No Pertinent History ENT History: No Pertinent History Cardiac History: No Pertinent History Respiratory History: No Pertinent History Endocrine Medical History: No Pertinent History Musculoskeletal History: No Pertinent History GI Medical History: No Pertinent History History: No Pertinent History Psycho-Social History: Anxiety, Depression Female Reproductive Disorders: No Pertinent History, Pelvic Inflammatory Disease Other Medical History: PTSD. HPV. PID - Past Surgical History Past Surgical History: Yes Neuro Surgical History: No Pertinent History Cardiac: No Pertinent History Respiratory: No Pertinent History Gastrointestinal: Appendectomy Genitourinary: No Pertinent History Musculoskeletal: No Pertinent History Female Surgical History: No Pertinent History - Social History Smoking Status: Never smoker How long have you smoked: 0.2 Exposure to second hand smoke: Yes Drug Use: none Patient Lives Alone: No - Nursing Vital Signs Nursing Vital Signs: Initial Vital Signs Temperature 98.7 F 10/21/22 15:09 Pulse Rate 85 10/21/22 15:09 Blood Pressure 137/81 10/21/22 15:09 O2 Sat by Pulse Oximetry 100 10/21/22 15:09 Pain Scale Pain Intensity 10 - Physical Exam General Appearance: no apparent distress, alert, anxiety Eye Exam: PERRL/EOMI, eyes nml inspection Ears, Nose, Throat Exam: normal ENT inspection, moist mucous membranes Neck Exam: normal inspection, non-tender, supple, full range of motion Respiratory Exam: normal breath sounds, lungs clear, airway intact, No chest tenderness, No respiratory distress Cardiovascular Exam: regular rate/rhythm, normal heart sounds, normal peripheral pulses Gastrointestinal/Abdomen Exam: soft, normal bowel sounds, tenderness (Localized tenderness in right lower quadrant), No guarding, No rebound Pelvic Exam: not done Rectal Exam: not done Back Exam: normal inspection, normal range of motion, No CVA tenderness, No vertebral tenderness Extremity Exam: normal inspection, normal range of motion, pelvis stable Neurologic Exam: alert, oriented x 3, cooperative, targeting acquisition officer II-XII nml as tested, normal mood/affect, nml cerebellar function, nml station & gait, sensation nml Skin Exam: normal color, warm, dry Lymphatic Exam: No adenopathy SpO2 Interpretation: normal O2 Delivery: Room Air - Course Nursing assessment & vital signs reviewed: Yes Ordered Tests: Active Orders 24 hr Category Date Time Status IV Insertion STAT Care 10/21/22 15:27 Active ABDOMINAL-LIMITED [US] Stat Exams 10/21/22 15:28 Taken CBC W DIFF Stat Lab 10/21/22 15:25 Completed CMP Stat Lab 10/21/22 15:25 Completed UA W/RFX UR CULTURE Stat Lab 10/21/22 15:34 Completed Medication Summary Discontinued Medications Generic Name Dose Route Start Last Admin Trade Name [place] PRN Reason Stop Dose Admin Acetaminophen 650 mg 10/21/22 15:46 10/21/22 16:27 Acetaminophen 325 Mg Tablet PO 10/21/22 15:47 650 mg STAT ONE Administration Acetaminophen Confirm 10/21/22 16:27 Acetaminophen 325 Mg Tablet Administered 10/21/22 16:28 Dose 650 mg .ROUTE .STK-MED ONE Sodium Chloride 1,000 mls @ 999 mls/hr 10/21/22 15:27 10/21/22 15:39 Sodium Chloride 0.9% 1000 Ml IV 10/21/22 16:27 999 mls/hr .Q1H1M STA Administration Sodium Chloride Confirm 10/21/22 15:37 Sodium Chloride 0.9% 1000 Ml Administered 10/21/22 15:38 Dose 1,000 mls @ ud .ROUTE .STK-MED ONE Lab/Rad Data: Laboratory Result Diagrams 10/21/22 15:25 10/21/22 15:25 Laboratory Results 10/21/22 10/21/22 10/21/22 Range/Units 15:34 15:25 15:25 WBC 11.0 H (4.0-10.5) x10^3/uL RBC 4.18 (4.1-5.4) x10^6/uL Hgb 12.8 (12.0-16.0) g/dL Hct 39.3 (35-47) % MCV 94.0 (78-100) fL MCH 30.6 (26-32) pg MCHC 32.6 (32-36) g/dL RDW 12.6 (11.5-14.0) % Plt Count 338 (150-450) x10^3/uL MPV 11.4 H (7.5-11.0) fL Gran % 60.9 (36.0-66.0) % Immature Gran % (Auto) 0.4 (0.00-0.4) % Nucleat RBC Rel Count 0.0 (0.00-0.1) % Eos # (Auto) 0.11 (0-0.5) x10^3/uL Immature Gran # (Auto) 0.04 H (0.00-0.03) x10^3u/L Absolute Lymphs (auto) 3.50 (1.0-4.6) x10^3/uL Absolute Monos (auto) 0.63 (0.0-1.3) x10^3/uL Absolute Nucleated RBC 0.00 (0.00-0.01) x10^3u/L Lymphocytes % 31.7 (24.0-44.0) % Monocytes % 5.7 (0.0-12.0) % Eosinophils % 1.0 (0.00-5.0) % Basophils % 0.3 (0.0-0.4) % Absolute Granulocytes 6.73 (1.4-6.9) x10^3/uL Basophils # 0.03 (0-0.4) x10^3/uL Sodium 136 L (137-145) mmol/L Potassium 4.3 (3.5-5.1) mmol/L Chloride 104 (98-107) mmol/L Carbon Dioxide 19 L (22-30) mmol/L Anion Gap 17.4 H (5-15) MEQ/L BUN 8 (7-17) mg/dL Creatinine 0.49 L (0.52-1.04) mg/dL Estimated GFR > 60.0 ML/MIN Glucose 77 (74-106) mg/dL Calcium 10.0 (8.4-10.2) mg/dL Total Bilirubin 0.40 (0.2-1.3) mg/dL AST 23 (14-36) U/L ALT 21 (0-35) U/L Alkaline Phosphatase 90 (38-126) U/L Serum Total Protein 7.8 (6.3-8.2) g/dL Albumin 4.3 (3.5-5.0) g/dL Urine Color Yellow (Yellow) Urine Appearance Clear (Clear) Urine pH 7.5 (4.6-8.0) Ur Specific [place] 1.010 (1.005-1.030) Urine Protein Negative (Negative) Urine Glucose (UA) Negative (Negative) mg/dL Urine Ketones Negative (Negative) Urine Blood Negative (Negative) Urine Nitrite Negative (Negative) Urine Bilirubin Negative (Negative) Urine Urobilinogen 0.2 (0.2) mg/dL Ur Leukocyte Esterase Small A (Negative) U Hyaline Cast (Auto) NONE SEEN (0-2) /LPF Urine Microscopic RBC 0-2 (0-5) /HPF Urine Microscopic WBC 3-5 (0-5) /HPF Ur Epithelial Cells Few (None Seen) /HPF Urine Bacteria Few A (None Seen) /HPF Urine Culture Reflexed NO (NO) - Progress Progress: improved, pain not gone completely, re-examined Progress Note: 10/21/22 16:01 clin tech gave me the impression of the study. This includes evidence of cholelithiasis. Unable to visualize kidney on the right side. Bowel is present. No acute fluid present. Right ovary appears normal. Overall, no acute findings. 10/21/22 16:32 I attempted to contact patient's barrel tester Dr. Savage. I left a voicemail for him to let him know that we saw his patient here and he left a basic information on what her complaint was and what the work-up showed. I will discharge her to home and have her follow-up with his office to make an appointment in the next 1 to 3 days. This patient's medical issues 1 of moderate complexity. The level complex in the work-up performed is based on review of the patient's past medical history, review of the patient's medication list, review of the patient's drug allergy list, history of present illness and physical findings on examination. The work-up includes CBC, CMP, urinalysis, limited right side abdominal ultrasound, placement of intravenous line infusion normal saline solution 1 L. Patient did not want any antiemetics. She was feeling nauseous but she stated it was because she has not eaten. I will have the patient use Tylenol every 4 hours while awake. I discussed this with her and her [id number]. I told her I would attempt to contact While he. However I was not able to talk directly to him but I did leave a voicemail on his cell phone. Patient is to contact the office tomorrow to make arrangements for follow-up appointment in the next 1 to 3 days. Counseled pt/family regarding: lab results, diagnosis, need for follow-up, rad results Medical Desision Making - Independent Historian Additional History obtained from: Family ([id number]) - Diagnostic Testing Diagnostic test were ordered, analyzed, and reviewed by me: Yes Radiological Interpretation: Reviewed by me, Teleradiologist Report - Departure Departure Disposition: Home Clinical Impression: Right lower quadrant abdominal pain during in second trimester Condition: Stable Critical Care Time: No Referrals: DAVID HATFIELD [Primary Care Provider] - Follow up/PCP as directed Additional Instructions: May use Tylenol every 4 hours while awake not to exceed 4 g of Tylenol in 24 hours each day. Call your barrel tester tomorrow morning and make them aware of your visit here to the emergency department and your symptoms and make a follow- up appointment in the next 1 to 3 days.
[2022-10-21] MEDS ORDERED: Sodium Chloride 0.9% 1000 ML 1,000 ML IV STA (15:27)
[2022-10-21] MEDS ORDERED: Sodium Chloride 0.9% 1000 ML 1,000 ML ONE (15:37)
[2022-10-21 15:43] LABS: Absolute Neutrophil Ct (ANC) 6.73 x10^3/uL (1.4-6.9); BASOPHIL % 0.3 % (0.0-0.4); Basophil (Absolute #) 0.03 x10^3/uL (0-0.4); Eosinophil (Absolute #) 0.11 x10^3/uL (0-0.5); Hematocrit 39.3 % (35-47); Hemoglobin 12.8 g/dL (12.0-16.0); IMMATURE GRAN # 0.04 x10^3u/L (0.00-0.03); IMMATURE GRAN % 0.4 % (0.00-0.4); Lymphocytes % 31.7 % (24.0-44.0); Mean Corpuscular Hemoglobin 30.6 pg (26-32); Mean Corpuscular Hgb Concent. 32.6 g/dL (32-36); Mean Platelet Volume 11.4 fL (7.5-11.0); Monocyte (Absolute #) 0.63 x10^3/uL (0.0-1.3); Monocytes % 5.7 % (0.0-12.0); Neutrophil % 60.9 % (36.0-66.0); Platelet Count 338 x10^3/uL (150-450); Red Blood Count 4.18 x10^6/uL (4.1-5.4); Red Cell Distribution Width 12.6 % (11.5-14.0)
[2022-10-21] MEDS ORDERED: TYLENOL 325 MG PO ONE (15:46)
[2022-10-21 15:58] LABS: Appearance Clear (Clear); Bacteria Few /HPF (None Seen); Bilirubin Negative (Negative); Blood Negative (Negative); Epithelial Cells Few /HPF (None Seen); Glucose, Urine Negative (Negative); Hyaline Casts NONE SEEN /LPF (0-2); Ketones Negative (Negative); Leukocyte Esterase Small (Negative); Nitrite Negative (Negative); Ph 7.5 (4.6-8.0); Protein,Urine Dip Negative (Negative); RBC 0-2 /HPF (0-5); Urobilinogen 0.2 mg/dL (0.2)
[2022-10-21 16:00] LABS: ADD URINE CULTURE? NO (NO)
[2022-10-21 16:06] LABS: ALBUMIN 4.3 g/dL (3.5-5.0); ALKALINE PHOSPHATASE 90 U/L (38-126); ANION GAP 17.4 MEQ/L (5-15); BLOOD UREA NITROGEN 8 mg/dL (7-17); CHLORIDE 104 mmol/L (98-107); Carbon Dioxide 19 mmol/L (22-30); Creatinine 1 0.49 mg/dL (0.52-1.04); EST GLOMERULAR FILTRATION RATE > 60.0 ML/MIN; Glucose 77 mg/dL (74-106); Potassium 4.3 mmol/L (3.5-5.1); SGOT/AST 23 U/L (14-36); SGPT/ALT 21 U/L (0-35); SODIUM 136 mmol/L (137-145); Total Protein 7.8 g/dL (6.3-8.2)
[2022-10-21] MEDS ORDERED: TYLENOL 325 MG ONE (16:27)
[2022-10-21 16:33] VITALS: BP 122/78; O2SAT 99
--- NOTE | 2022-10-21 16:33 | XRAY ---
Indication: Right lower quadrant pain. Targeted ultrasound right lower quadrant abdomen does not identify appendix. No focal solid/cystic soft tissue mass or abnormal fluid collection. Incidental tiny gallstones without abnormal gallbladder wall thickening or pericholecystic fluid. Visualized right kidney sonographically normal.
[2022-10-21 16:44] VITALS: PULSE 68
== END 2022-10-21 16:55 | disposition home or self-care (01) ==
LOC: ED 14:53
DX: O26.892 Other specified pregnancy related conditions, second trimester (principal); Z3A.18 18 weeks gestation of pregnancy; R10.31 Right lower quadrant pain; Z79.899 Other long term (current) drug therapy; Z28.310 Unvaccinated for COVID-19
CPT/HCPCS: 36000; 36415; 76705; 80053; 81001; 85025; 99284; A9270-GY

== ENCOUNTER 2023-03-23 00:19 | Emergency (ER) | payer OTHER ==
[2023-03-23 00:28] VITALS: TEMP 97.4
--- NOTE | 2023-03-23 00:36 | ERPHSYRPT ---
- History of Present Illness Time Seen by Provider: 03/23/23 00:36 Exam Limitations: no limitations Patient Subjective Stated Complaint: pt states "I was laying in bed and my stomach started hurting." Triage Nursing Assessment: pt ambulatory to bed by self with steady gait, pt alert and oriented x3, skin pwd, pt c/o epigastric pain that started about 20 mins prior to arrival, denies any diarrhea or vomiting, pt states her pain is minimal compared to when it first started Physician History: Patient a 22-year-old female presents to our ED for evaluation of pain at the epigastrium and lower chest. Patient states pain started relatively acutely just prior to arrival. However the abdominal component to her pain has completely resolved. Patient is approximately 5 to 6 weeks . Patient had similar symptoms last week however her symptoms spontaneously resolved and therefore she was not evaluated. Pain described as an ache that is localized. No radiation. No specific worsening improving factors. No trauma no fever. No nausea vomiting or diaphoresis. Patient states she has no significant past medical history. Patient otherwise healthy. She voices no other complaints or concerns at this time. Portions of this note were created with voice recognition technology. There may be grammatical, spelling, punctuation or sound alike errors Timing/Duration: today Activities at Onset: none Quality: aching Location: substernal Chest Pain Radiation: no radiation Severity of Pain-Max: none Severity of Pain-Current: none Modifying Factors: Improves With: nothing Associated Symptoms: denies symptoms Prior Chest Pain/Cardiac Workup: no prior chest pain Nitro Today/Relief: no nitro taken today Aspirin Treatment Today: no aspirin today Allergies/Adverse Reactions: cephalexin monohydrate [From Keflex] Allergy (Mild, Verified 03/23/23 00:22) Hives Latex, Natural Rubber Allergy (Verified 03/23/23 00:22) Home Medications: Levothyroxine Sodium 50 mcg PO DAILY 05/01/22 [History] Omeprazole 40 mg PO DAILY 02/16/23 [History] Hx Tetanus, Diphtheria Vaccination/Date Given: Yes Hx Influenza Vaccination/Date Given: No Hx Pneumococcal Vaccination/Date Given: No Immunizations Up to Date: No Travel Risk - International Travel Have you traveled outside of the country in past 3 weeks: No - Coronavirus Screening Are you exhibiting any of the following symptoms?: No Close contact with a COVID-19 positive Pt in past 14-21 Days: No - Vaccine Status Have you recieved a Covid-19 vaccination: No - Review of Systems Constitutional: No Symptoms, No Fever, No Chills Eyes: No Symptoms Ears, Nose, & Throat: No Symptoms Respiratory: No Symptoms, No Cough, No Dyspnea Cardiac: No Symptoms, No Chest Pain, No Edema, No Syncope Abdominal/Gastrointestinal: No Symptoms, No Abdominal Pain, No Nausea, No Vomiting, No Diarrhea Genitourinary Symptoms: No Symptoms, No Dysuria Musculoskeletal: No Symptoms, No Back Pain, No Neck Pain Skin: No Symptoms, No Rash Neurological: No Symptoms, No Dizziness, No Focal Weakness, No Sensory Changes Psychological: No Symptoms Endocrine: No Symptoms Hematologic/Lymphatic: No Symptoms Immunological/Allergic: No Symptoms All Other Systems: Reviewed and Negative - Past Medical History Pertinent Past Medical History: No Neurological History: No Pertinent History ENT History: No Pertinent History Cardiac History: No Pertinent History Respiratory History: No Pertinent History Endocrine Medical History: No Pertinent History Musculoskeletal History: No Pertinent History GI Medical History: No Pertinent History History: No Pertinent History Psycho-Social History: Anxiety, Depression Female Reproductive Disorders: No Pertinent History, Pelvic Inflammatory Disease Other Medical History: PTSD. HPV. PID - Past Surgical History Past Surgical History: Yes Neuro Surgical History: No Pertinent History Cardiac: No Pertinent History Respiratory: No Pertinent History Gastrointestinal: Appendectomy Genitourinary: No Pertinent History Musculoskeletal: No Pertinent History Female Surgical History: Section - Social History Smoking Status: Never smoker How long have you smoked: 0.2 Exposure to second hand smoke: No Drug Use: none Patient Lives Alone: No - Female History Hx Last Menstrual Period: on depo shot Hx Now: No - Nursing Vital Signs Nursing Vital Signs: Initial Vital Signs Temperature 97.4 F 03/23/23 00:27 Pulse Rate 78 03/23/23 00:27 Respiratory Rate 18 03/23/23 00:27 Blood Pressure 127/78 03/23/23 00:27 O2 Sat by Pulse Oximetry 97 03/23/23 00:27 Pain Scale Pain Intensity 2 - Physical Exam General Appearance: no apparent distress, alert Eye Exam: PERRL/EOMI, eyes nml inspection Ears, Nose, Throat Exam: normal ENT inspection, TMs normal, pharynx normal, moist mucous membranes Neck Exam: normal inspection, non-tender, supple, full range of motion Respiratory Exam: normal breath sounds, lungs clear, airway intact, No respiratory distress Cardiovascular Exam: regular rate/rhythm, normal heart sounds, normal peripheral pulses Gastrointestinal/Abdomen Exam: soft, No tenderness, No mass Back Exam: normal inspection, No CVA tenderness, No vertebral tenderness Extremity Exam: normal inspection, normal range of motion Neurologic Exam: alert, oriented x 3, cooperative, normal mood/affect, sensation nml, No motor deficits Skin Exam: normal color, warm, dry Lymphatic Exam: No adenopathy SpO2 Interpretation: normal SpO2: 97 O2 Delivery: Room Air - Course Nursing assessment & vital signs reviewed: Yes EKG Interpreted by Me: RATE (93), Sinus Rhythm, NORMAL AXIS, NORMAL INTERVALS Ordered Tests: Active Orders 24 hr Category Date Time Status AMA [Release AMA] OM.NOW Care 03/23/23 03:35 Active Consumer Loan Specialist STAT Care 03/23/23 00:34 Active EKG-ER Only STAT Care 03/23/23 00:33 Active IV Insertion STAT Care 03/23/23 00:33 Active Pulse Oximetry (ED) STAT Care 03/23/23 00:33 Active CHEST WITH CONTRAST [CT] Stat Exams 03/23/23 01:49 Ordered CBC W DIFF Stat Lab 03/23/23 00:54 Completed CMP Stat Lab 03/23/23 00:54 Completed D-DIMER QUANTITATIVE Stat Lab 03/23/23 00:54 Completed HCG QUALITATIVE, URINE Stat Lab 03/23/23 00:54 Completed LIPASE Stat Lab 03/23/23 00:54 Completed NT PRO BNPII Stat Lab 03/23/23 00:54 Completed TROPONIN Q4H Lab 03/23/23 00:54 Completed TROPONIN Q4H Lab 03/23/23 04:45 Ordered TROPONIN Q4H Lab 03/23/23 08:45 Ordered UA W/RFX UR CULTURE Stat Lab 03/23/23 00:54 Completed Lab/Rad Data: Laboratory Result Diagrams 03/23/23 00:54 03/23/23 00:54 Laboratory Results 03/23/23 03/23/23 03/23/23 Range/Units 00:54 00:54 00:54 WBC (4.0-10.5) x10^3/uL RBC (4.1-5.4) x10^6/uL Hgb (12.0-16.0) g/dL Hct (35-47) % MCV (78-100) fL MCH (26-32) pg MCHC (32-36) g/dL RDW (11.5-14.0) % Plt Count (150-450) x10^3/uL MPV (7.5-11.0) fL Gran % (36.0-66.0) % Immature Gran % (Auto) (0.00-0.4) % Nucleat RBC Rel Count (0.00-0.1) % Eos # (Auto) (0-0.5) x10^3/uL Immature Gran # (Auto) (0.00-0.03) x10^3u/L Absolute Lymphs (auto) (1.0-4.6) x10^3/uL Absolute Monos (auto) (0.0-1.3) x10^3/uL Absolute Nucleated RBC (0.00-0.01) x10^3u/L Lymphocytes % (24.0-44.0) % Monocytes % (0.0-12.0) % Eosinophils % (0.00-5.0) % Basophils % (0.0-0.4) % Absolute Granulocytes (1.4-6.9) x10^3/uL Basophils # (0-0.4) x10^3/uL D-Dimer (0.0-0.50) mg/L Sodium (137-145) mmol/L Potassium (3.5-5.1) mmol/L Chloride (98-107) mmol/L Carbon Dioxide (22-30) mmol/L Anion Gap (5-15) MEQ/L BUN (7-17) mg/dL Creatinine (0.52-1.04) mg/dL Estimated GFR ML/MIN Glucose (74-106) mg/dL Calcium (8.4-10.2) mg/dL Total Bilirubin (0.2-1.3) mg/dL AST (14-36) U/L ALT (0-35) U/L Alkaline Phosphatase (38-126) U/L Troponin I < 0.012 (0.000-0.034) ng/mL NT-Pro-B Natriuret Pep < 20.0 (<300) pg/mL Serum Total Protein (6.3-8.2) g/dL Albumin (3.5-5.0) g/dL Lipase (23-300) U/L Urine Color Yellow (Yellow) Urine Appearance Clear (Clear) Urine pH 7.0 (4.6-8.0) Ur Specific [place] 1.020 (1.005-1.030) Urine Protein Negative (Negative) Urine Glucose (UA) Negative (Negative) mg/dL Urine Ketones Negative (Negative) Urine Blood Negative (Negative) Urine Nitrite Negative (Negative) Urine Bilirubin Negative (Negative) Urine Urobilinogen 1.0 A (0.2) mg/dL Ur Leukocyte Esterase Negative (Negative) U Hyaline Cast (Auto) NONE SEEN (0-2) /LPF Urine Microscopic RBC 0-2 (0-5) /HPF Urine Microscopic WBC 0-2 (0-5) /HPF Ur Epithelial Cells None Seen (None Seen) /HPF Urine Bacteria None Seen (None Seen) /HPF Urine Culture Reflexed NO (NO) Urine HCG, Qual NEGATIVE (NEGATIVE) 03/23/23 03/23/23 03/23/23 Range/Units 00:54 00:54 00:54 WBC 9.0 (4.0-10.5) x10^3/uL RBC 3.92 L (4.1-5.4) x10^6/uL Hgb 11.5 L (12.0-16.0) g/dL Hct 36.1 (35-47) % MCV 92.1 (78-100) fL MCH 29.3 (26-32) pg MCHC 31.9 L (32-36) g/dL RDW 12.4 (11.5-14.0) % Plt Count 373 (150-450) x10^3/uL MPV 11.0 (7.5-11.0) fL Gran % 45.2 (36.0-66.0) % Immature Gran % (Auto) 0.2 (0.00-0.4) % Nucleat RBC Rel Count 0.0 (0.00-0.1) % Eos # (Auto) 0.12 (0-0.5) x10^3/uL Immature Gran # (Auto) 0.02 (0.00-0.03) x10^3u/L Absolute Lymphs (auto) 4.36 (1.0-4.6) x10^3/uL Absolute Monos (auto) 0.43 (0.0-1.3) x10^3/uL Absolute Nucleated RBC 0.00 (0.00-0.01) x10^3u/L Lymphocytes % 48.2 H (24.0-44.0) % Monocytes % 4.8 (0.0-12.0) % Eosinophils % 1.3 (0.00-5.0) % Basophils % 0.3 (0.0-0.4) % Absolute Granulocytes 4.08 (1.4-6.9) x10^3/uL Basophils # 0.03 (0-0.4) x10^3/uL D-Dimer 0.69 H* (0.0-0.50) mg/L Sodium 139 (137-145) mmol/L Potassium 3.6 (3.5-5.1) mmol/L Chloride 105 (98-107) mmol/L Carbon Dioxide 20 L (22-30) mmol/L Anion Gap 17.6 H (5-15) MEQ/L BUN 11 (7-17) mg/dL Creatinine 0.92 (0.52-1.04) mg/dL Estimated GFR > 60.0 ML/MIN Glucose 134 H (74-106) mg/dL Calcium 9.9 (8.4-10.2) mg/dL Total Bilirubin 0.30 (0.2-1.3) mg/dL AST 48 H (14-36) U/L ALT 55 H (0-35) U/L Alkaline Phosphatase 104 (38-126) U/L Troponin I (0.000-0.034) ng/mL NT-Pro-B Natriuret Pep (<300) pg/mL Serum Total Protein 7.8 (6.3-8.2) g/dL Albumin 4.7 (3.5-5.0) g/dL Lipase 149 (23-300) U/L Urine Color (Yellow) Urine Appearance (Clear) Urine pH (4.6-8.0) Ur Specific [place] (1.005-1.030) Urine Protein (Negative) Urine Glucose (UA) (Negative) mg/dL Urine Ketones (Negative) Urine Blood (Negative) Urine Nitrite (Negative) Urine Bilirubin (Negative) Urine Urobilinogen (0.2) mg/dL Ur Leukocyte Esterase (Negative) U Hyaline Cast (Auto) (0-2) /LPF Urine Microscopic RBC (0-5) /HPF Urine Microscopic WBC (0-5) /HPF Ur Epithelial Cells (None Seen) /HPF Urine Bacteria (None Seen) /HPF Urine Culture Reflexed (NO) Urine HCG, Qual (NEGATIVE) - Progress Progress: improved Air Movement: good Progress Note: Patient is a 22-year-old female presents to the emergency department for evaluation of chest pain. EKG revealed normal sinus rhythm. CBC CMP essential ly unremarkable. D-dimer positive. Patient is 5 weeks . At this point we would expect patient's D-dimer to be normal. Lipase within normal limits. BNP within normal limits. Troponin negative. Urinalysis negative. CTA ordered. Staff had a difficult time obtaining access. We used ultrasound to obtain access at the left AC. " Samreen" YO obtained access. Dr. Bryant identified the vein on ultrasound. Patient had her CT a of her chest. However the vein "blew" before the study was completed. Patient declined further attempts at obtaining access. Patient stated that she had to go home because of concerns regarding her . Patient left AMA. Patient is of sound mind. Patient is appropriate to make informed and independent medical decisions. Patient understands that leaving AGAINST MEDICAL ADVICE can result in delayed diagnosis, increased risk of morbidity, mortality, short and long-term disability including . In spite of these risks, patient has decided to leave AGAINST MEDICAL ADVICE. Patient understands that she may return to our ED at any point if she reconsiders. Patient agrees to follow-up with her primary care doctor within 48 hours for reevaluation. Patient voices no other complaints or concerns at this time. We will release patient AGAINST MEDICAL ADVICE per their request. Portions of this note were created with voice recognition technology. There may be grammatical, spelling, punctuation or sound alike errors Complexity of problems addressed is moderate acute complicated Critical care time Complex of data reviewed and analyzed is moderate. Test ordered test reviewed. Findings were analyzed. Clinical correlation made between the findings and history and physical exam. Risk of complication and or risk of morbidity/mortality of patient management is moderate. Patient left AMA. Patient actually walked out of the ER before obtaining her discharge paperwork Vital stable. Time spent to discharge patient AMA is approximately 15 minutes. No social determinants of health present to impede follow-up. Portions of this note were created with voice recognition technology. There may be grammatical, spelling, punctuation or sound alike errors 03/23/23 03:51 Blood Culture(s) Obtained: No Antibiotics given: No Counseled pt/family regarding: lab results, diagnosis, need for follow-up - Departure Departure Disposition: AMA Clinical Impression: Chest pain Condition: Stable Critical Care Time: No Referrals: FÁTIMA STEPHENSON DO [Primary Care Provider] - Follow up/PCP as directed Additional Instructions: Discharge/Care Plan LUISITO FERNANDEZ LUIS FERNANDO was seen on 03/23/23 in the Emergency Room. The patient was counseled regarding Diagnosis,Lab results, Imaging studies, need for follow up and when to return to the Emergency Room. Prescriptions given: Discharge Note I have spoken with the patient and/or caregivers. I have explained the patient's condition, diagnosis and treatment plan based on the information available to me at this time. I have answered the patient's and/or caregiver's questions and addressed any concerns. The patient and/or caregivers have as good understanding of the patient's diagnosis, condition and treatment plan as can be expected at this point. The vital signs have been stable. The patient's condition is stable and appropriate for discharge from the emergency department. The patient will pursue further outpatient evaluation with the primary care physician or other designated or consulting physician as outlined in the discharge instructions. The patient and/or caregivers are agreeable to this plan of care and follow-up instructions have been explained in detail. The patient and/or caregivers have received these instruction. The patient/and or caregivers are aware that any significant change in condition or worsening of symptoms should prompt an immediate return to this or the closest emergency department or call 911.
[2023-03-23 00:56] LABS: Absolute Neutrophil Ct (ANC) 4.08 x10^3/uL (1.4-6.9); BASOPHIL % 0.3 % (0.0-0.4); Basophil (Absolute #) 0.03 x10^3/uL (0-0.4); Eosinophil % 1.3 % (0.00-5.0); Eosinophil (Absolute #) 0.12 x10^3/uL (0-0.5); Hematocrit 36.1 % (35-47); Hemoglobin 11.5 g/dL (12.0-16.0); IMMATURE GRAN # 0.02 x10^3u/L (0.00-0.03); IMMATURE GRAN % 0.2 % (0.00-0.4); Lymphocyte (Absolute #) 4.36 x10^3/uL (1.0-4.6); Lymphocytes % 48.2 % (24.0-44.0); Mean Cell Volume 92.1 fL (78-100); Mean Corpuscular Hemoglobin 29.3 pg (26-32); Mean Corpuscular Hgb Concent. 31.9 g/dL (32-36); Monocyte (Absolute #) 0.43 x10^3/uL (0.0-1.3); Monocytes % 4.8 % (0.0-12.0); Neutrophil % 45.2 % (36.0-66.0); Platelet Count 373 x10^3/uL (150-450); Red Blood Count 3.92 x10^6/uL (4.1-5.4); Red Cell Distribution Width 12.4 % (11.5-14.0)
[2023-03-23 01:05] LABS: HCG URINE TEST NEGATIVE (NEGATIVE)
[2023-03-23 01:08] LABS: Appearance Clear (Clear); Bacteria None Seen /HPF (None Seen); Bilirubin Negative (Negative); Blood Negative (Negative); Epithelial Cells None Seen /HPF (None Seen); Glucose, Urine Negative (Negative); Hyaline Casts NONE SEEN /LPF (0-2); Ketones Negative (Negative); Leukocyte Esterase Negative (Negative); Nitrite Negative (Negative); Protein,Urine Dip Negative (Negative); RBC 0-2 /HPF (0-5); WBC 0-2 /HPF (0-5)
[2023-03-23 01:09] LABS: ALBUMIN 4.7 g/dL (3.5-5.0); ALKALINE PHOSPHATASE 104 U/L (38-126); ANION GAP 17.6 MEQ/L (5-15); BLOOD UREA NITROGEN 11 mg/dL (7-17); CHLORIDE 105 mmol/L (98-107); Calcium 9.9 mg/dL (8.4-10.2); Carbon Dioxide 20 mmol/L (22-30); Creatinine 1 0.92 mg/dL (0.52-1.04); EST GLOMERULAR FILTRATION RATE > 60.0 ML/MIN; Glucose 134 mg/dL (74-106); LIPASE 149 U/L (23-300); Potassium 3.6 mmol/L (3.5-5.1); SGOT/AST 48 U/L (14-36); SGPT/ALT 55 U/L (0-35); SODIUM 139 mmol/L (137-145); Total Protein 7.8 g/dL (6.3-8.2)
[2023-03-23 01:13] LABS: ADD URINE CULTURE? NO (NO)
[2023-03-23 01:21] LABS: NT PRO BNPII < 20.0 pg/mL (<300); TROPONIN < 0.012 ng/mL (0.000-0.034)
[2023-03-23 02:16] VITALS: RESP 15
[2023-03-23 03:29] VITALS: BP 135/74; PULSE 88
[2023-03-23 03:43] VITALS: O2SAT 97
== END 2023-03-23 03:40 | disposition left against medical advice (07) ==
LOC: ED 00:19
DX: R07.9 Chest pain, unspecified (principal); R10.13 Epigastric pain; Z79.899 Other long term (current) drug therapy; Z28.310 Unvaccinated for COVID-19
CPT/HCPCS: 36000; 36415; 80053; 81001; 81025; 83690; 83880; 84484; 85025; 85379; 93005; 93041; 94760; 99284

== ENCOUNTER 2023-05-11 08:10 | Day surgery (SDC) | payer OTHER ==
[~2023-05-11 08:10] MED LIST: Sensorcaine 0.25% 10 ML ONE
[2023-05-11] MEDS ORDERED: Transderm Scop 1.5MG Patch TOP PRN (08:15)
[2023-05-11] MEDS ORDERED: Versed 2 MG/2 ML Injection IV PRN (08:18)
[2023-05-11] MEDS ORDERED: Transderm Scop 1.5MG Patch ONE (08:24)
[2023-05-11] MEDS ORDERED: Lactated Ringers 1,000 ML IV ONE ×2 (08:25→09:44)
[2023-05-11 08:26] LABS: HCG URINE TEST NEGATIVE (NEGATIVE)
[2023-05-11] MEDS ORDERED: Lactated Ringers 1,000 ML IV SCH (08:30)
[2023-05-11 08:42] VITALS: RESP 16
[2023-05-11] MEDS ORDERED: CLINDAMYCIN-D5W 900 MG/50 ML*** 900 MG/50 ML BAG IV ONE (08:51)
[2023-05-11] MEDS ORDERED: Levofloxacin 500MG/100ML D5W 500 MG/100 ML BAG IV ONE (08:51)
[2023-05-11] MEDS ORDERED: Levofloxacin 500MG/100ML D5W 500 MG/100 ML BAG IV SCH (09:00)
[2023-05-11] MEDS ORDERED: CLINDAMYCIN-D5W 900 MG/50 ML*** 900 MG/50 ML BAG IV SCH (09:00)
--- NOTE | 2023-05-11 09:35 | HP ---
DATE OF SURGERY: 05/11/2023 HISTORY OF PRESENT ILLNESS: The patient is a 22-year-old with upper abdominal pain, history of nausea and vomiting for three weeks, hypertension and cholelithiasis. PAST MEDICAL HISTORY: Heartburn, gallbladder disease, depression, anxiety. PAST SURGICAL HISTORY: section. Appendectomy. MEDICATIONS: Levothyroxine. ALLERGIES: KEFLEX. LATEX. FAMILY HISTORY: Negative in regards to this problem. SOCIAL HISTORY: Former smoker, occasional alcohol use. REVIEW OF SYSTEMS: Twelve systems reviewed. No chest pain or palpitations. Other systems negative or noncontributory as above and per preadmission questionnaire. PHYSICAL EXAMINATION: Height 5'7". BMI 25. GENERAL: No acute distress. HEENT: Sclerae nonicteric. EOMI. Oral mucous membranes moist. NECK: No JVD. CHEST: Equal excursion, nonlabored breathing. CVS: Regular rate and rhythm. ABDOMEN: Soft. No peritoneal signs. EXTREMITIES: No significant edema. NEURO: Alert, oriented, moving extremities symmetrically. PSYCH: Appropriate mood and affect. SKIN: Dry. IMPRESSION: Acute exacerbation chronic cholecystitis, symptomatic cholelithiasis. I recommend cholecystectomy. Risks including but not limited to bleeding or infection, risk of trocar injury or hernia, risk of bile leak, bile duct injury, retained stone or sludge possibly requiring further procedure either open procedure or ERCP, general risk of anesthesia, deep venous thrombosis, pulmonary embolism, pneumonia, perioperative risk of aches, pains, bloating, constipation and/or loose stools possibly even chronic in nature and possibly no improvement in preoperative symptoms possibly requiring further work up, studies, endoscopies, other studies or referrals. Will proceed with laparoscopic cholecystectomy possible open as an outpatient. Continue medications for thyroid, continue medical management for history of depression.
[2023-05-11] MEDS ORDERED: Sensorcaine 0.25% 10 ML ONE (09:44)
[2023-05-11] MEDS ORDERED: SUBLIMAZE 100 MCG/2 ML ONE ×3 (10:37→12:17)
[2023-05-11] MEDS ORDERED: Versed 2 MG/2 ML Injection ONE (10:37)
[2023-05-11] MEDS ORDERED: Zemuron 100 MG/10 ML ONE (10:37)
[2023-05-11] MEDS ORDERED: DIPRIVAN 200 MG/20 ML IV ONE (10:37)
[2023-05-11] MEDS ORDERED: Xylocaine-Mpf 2% 5 Ml Vial ONE (11:06)
[2023-05-11] MEDS ORDERED: Ephedrine Sulfate 50 MG/ML ONE (11:35)
[2023-05-11] MEDS ORDERED: BRIDION 200MG/2ML IV ONE (11:45)
[2023-05-11] MEDS ORDERED: TORAdol 30 mg Injection ONE (11:51)
[2023-05-11] MEDS ORDERED: Zofran 4 MG/2 ML VIAL ONE (12:06)
[2023-05-11 13:00] VITALS: O2SAT 100
[2023-05-11 13:16] VITALS: BP 111/59; PULSE 65; TEMP 97.6
--- NOTE | 2023-05-12 12:51 | OP ---
SURGERY DATE/TIME: 05/11/2023 1102 PREOPERATIVE DIAGNOSIS: Acute exacerbation of chronic cholecystitis, symptomatic cholelithiasis. POSTOPERATIVE DIAGNOSIS: Acute exacerbation of chronic cholecystitis, symptomatic cholelithiasis. PROCEDURE: Laparoscopic cholecystectomy. SURGEON: Dr. Hebert Del Castillo. ANESTHESIA: General. ESTIMATED BLOOD LOSS: Minimal. INDICATIONS: As noted above. Risks and benefits explained in detail but not limited to and consent obtained. DESCRIPTION OF PROCEDURE AND FINDINGS: The patient was taken to the operating room. General anesthesia induced. Abdomen prepped and draped in usual sterile fashion. After official time out and no disagreement with planned procedure, a transverse incision made in the supraumbilical area. Fascia grasped, pulled upward. Veress needle inserted and tested with saline. Pneumoperitoneum accomplished insufflating opening pressure of 0-15. An 11 mm bladeless port and camera were inserted without difficulty followed by two - 5 mm right upper quadrant ports and 5 mm epigastric port. The gallbladder is grasped retracted over the edge of liver, had some mild chronic inflammatory reaction. It was dissected posterior, lateral to anterior fashion slowly and carefully the cystic duct and infundibular junction slowly carefully well skeletonized until the critical view was obtained both anteriorly and posteriorly. It should be noted that the cystic artery vein was going down the lateral aspect of the cystic duct but slowly and carefully skeletonized until critical view obtained anteriorly and posteriorly. The cystic duct and cystic artery were clipped x3 and divided in the usual fashion. The gallbladder is slowly and carefully dissected free from its dense attachments to the liver bed staying directly on the gallbladder wall clipping additional oozing side branch off the cystic artery and vein as needed directly on the gallbladder wall. The gallbladder is slowly and carefully dissected free from its dense almost concrete attachments to the liver bed staying directly on the gallbladder wall. Just prior to releasing from final attachments to the anterior edge of the liver, the liver bed re-inspected. Clips noted to be in place in the cystic duct and cystic artery stumps. No signs of any active bleeding or bile leakage. It was felt there is no benefit of drain placement. The gallbladder was released from final attachments to anterior edge of the liver and placed in the provided sac, pulled up and out the 1011 supraumbilical port site and passed off. The fascial defect was then closed with puncture closure device with #1 Vicryl under direct vision of the camera. Careful inspection of the liver bed. Irrigation lateral to liver and subhepatic space irrigating clear. Clips noted to be in place cystic duct and cystic artery stumps. No signs of any active bleeding or bile leakage. It was felt there was no benefit in drain placement. Pneumoperitoneum decompressed. The wound irrigated out. Skin incision closed with 4-0 Vicryl. 0.25% Marcaine local injected along the skin incision fascial defect. Steri-Strips and sterile dressing applied. The patient tolerated the procedure well. There were no immediate complications. Findings discussed with the family out in the waiting area.
== END 2023-05-11 13:30 | disposition home or self-care (01) ==
LOC: SDC 08:10
PROVIDERS: ATTEND Surgery
DX: K80.12 Calculus of gallbladder with acute and chronic cholecystitis without obstruction (principal)
CPT/HCPCS: 81025; J1885; J1956; J2250; J2405; J2704; J3010; A9270-GY

== ENCOUNTER 2024-02-16 11:32 | Emergency (ER) | payer OTHER ==
[2024-02-16] MEDS ORDERED: XYLOCAINE 1% HCL 20 ML MDV ONE (12:00)
--- NOTE | 2024-02-16 12:06 | ERPHSYRPT ---
- History of Present Illness Time Seen by Provider: 02/16/24 12:04 Exam Limitations: no limitations Physician History: 23-year-old female presents to emergency department for evaluation of laceration to her right hand. Patient states she was washing a glass cup. Patient had her hand in the cup was pushing down into the cup to clean the base of it and broke the glass. Patient has a laceration to the medial aspect of her right hand just proximal to the fifth MCP. No active bleeding. The involved digits neurovascular intact distally compartments are soft cap refill less than 2 seconds. No other injury reported tetanus up-to-date. Patient is otherwise healthy. She voices no other complaints or concerns at this time. Portions of this note were created with voice recognition technology. There may be grammatical, spelling, punctuation or sound alike errors Timing/Duration: today Severity: moderate Modifying Factors: Improves With: nothing Associated Symptoms: denies symptoms Allergies/Adverse Reactions: cephalexin monohydrate [From Keflex] Allergy (Mild, Verified 02/16/24 11:58) Hives Latex, Natural Rubber Allergy (Verified 02/16/24 11:58) Rash Home Medications: RX: Levothyroxine Sodium 50 mcg PO DAILY 05/01/22 [History] RX: Vilazodone HCl 10 mg PO DAILY 04/29/23 [History] RX: Famotidine 20 mg PO DAILY 05/11/23 [History] RX: Medroxyprogesterone Acetate [Depo-Subq Provera 104] 104 mg SQ UD 05/11/23 [History] Hx Tetanus, Diphtheria Vaccination/Date Given: Yes Hx Influenza Vaccination/Date Given: No Hx Pneumococcal Vaccination/Date Given: No - Review of Systems Constitutional: No Symptoms, No Fever, No Chills Eyes: No Symptoms Ears, Nose, & Throat: No Symptoms Respiratory: No Symptoms, No Cough, No Dyspnea Cardiac: No Symptoms, No Chest Pain, No Edema, No Syncope Abdominal/Gastrointestinal: No Symptoms, No Abdominal Pain, No Nausea, No Vomiting, No Diarrhea Genitourinary Symptoms: No Symptoms, No Dysuria Musculoskeletal: No Symptoms, No Back Pain, No Neck Pain Skin: No Symptoms, No Rash Neurological: No Symptoms, No Dizziness, No Focal Weakness, No Sensory Changes Psychological: No Symptoms Endocrine: No Symptoms Hematologic/Lymphatic: No Symptoms Immunological/Allergic: No Symptoms All Other Systems: Reviewed and Negative - Past Medical History Pertinent Past Medical History: Yes Neurological History: No Pertinent History ENT History: No Pertinent History Cardiac History: No Pertinent History Respiratory History: No Pertinent History Endocrine Medical History: No Pertinent History Musculoskeletal History: No Pertinent History GI Medical History: No Pertinent History History: No Pertinent History Psycho-Social History: Anxiety, Depression Female Reproductive Disorders: No Pertinent History, Pelvic Inflammatory Disease Other Medical History: PTSD. HPV. PID - Past Surgical History Past Surgical History: Yes Neuro Surgical History: No Pertinent History Cardiac: No Pertinent History Respiratory: No Pertinent History Gastrointestinal: Appendectomy Genitourinary: No Pertinent History Musculoskeletal: No Pertinent History Female Surgical History: Section - Female History Hx Last Menstrual Period: 1 MONTH AGO - Social History Smoking Status: Current every day smoker How long have you smoked: 0.2 Exposure to second hand smoke: No Drug Use: none Patient Lives Alone: No - Social Determinants of Health Will the patient participate in the screening: Yes Do you worry about a steady place to live?: No In the past 12 months,have you had to go without utilities?: No Transportation Issues: No Has anyone in your support network made you feel unsafe?: No Have you or anyone in your house had to go without enough: No - Nursing Vital Signs Nursing Vital Signs: Initial Vital Signs Temperature 98.4 F 02/16/24 11:59 Pulse Rate 87 02/16/24 11:59 Respiratory Rate 18 02/16/24 11:59 Blood Pressure 124/95 02/16/24 11:59 O2 Sat by Pulse Oximetry 100 02/16/24 11:59 Pain Scale Pain Intensity 4 - Physical Exam General Appearance: no apparent distress, alert Eye Exam: PERRL/EOMI, eyes nml inspection Ears, Nose, Throat Exam: normal ENT inspection, moist mucous membranes Neck Exam: normal inspection, full range of motion Respiratory Exam: normal breath sounds, lungs clear, No respiratory distress Cardiovascular Exam: regular rate/rhythm, normal heart sounds, normal peripheral pulses Gastrointestinal/Abdomen Exam: soft, normal bowel sounds, No tenderness, No mass Back Exam: normal inspection, normal range of motion, No CVA tenderness, No vertebral tenderness Extremity Exam: normal inspection, normal range of motion, pelvis stable Neurologic Exam: alert, oriented x 3, cooperative, normal mood/affect, nml cerebellar function, nml station & gait, sensation nml, No motor deficits Skin Exam: normal color, warm, dry, No rash Lymphatic Exam: No adenopathy SpO2 Interpretation: normal O2 Delivery: Room Air Procedures - Laceration/Wound Repair Other Time of Procedure: 12:22 Wound Location: Right (Right hand) Wound Length (cm): 2 Wound's Depth, Shape: superficial Wound Explored: clean Irrigated: Yes Hibiclens Prep: Yes Anesthesia: 1% Lidocaine Volume Anesthetic (ccs): 4 Wound Debrided: No debridement indicated Wound Repaired With: sutures Suture Size/Type: 5-0, ethilon Number of Sutures: 6 Layer Closure?: No Sterile Dressing Applied?: Yes Progress: 02/16/24 12:22 Patient neurovascular intact distally post procedure. No intra or postprocedural complications. - Course Nursing assessment & vital signs reviewed: Yes Ordered Tests: Active Orders 24 hr Category Date Time Status Wound Care STAT Care 02/16/24 12:08 Active Medication Summary Discontinued Medications Generic Name Dose Route Start Last Admin Trade Name Freq PRN Reason Stop Dose Admin Bacitracin Zinc 0.9 each 02/16/24 12:07 02/16/24 12:09 Bacitracin Packet 1 Each Pckt TP 02/16/24 12:08 0.9 each STAT ONE Administration Bacitracin Zinc Confirm 02/16/24 12:08 Bacitracin Packet 1 Each Pckt Administered 02/16/24 12:09 Dose 1 each .ROUTE .STK-MED ONE Lidocaine HCl Confirm 02/16/24 12:00 Lidocaine Hcl 1% 20 Ml Mdv 20 Ml Ml Administered 02/16/24 12:01 Dose 10 ml .ROUTE .STK-MED ONE Lidocaine HCl 10 ml 02/16/24 12:07 02/16/24 12:08 Lidocaine Hcl 1% 20 Ml Mdv 20 Ml Ml IJ 02/16/24 12:08 10 ml STAT ONE Administration - Progress Progress: improved Progress Note: 23-year-old female presents to emergency department for evaluation and treatment of a laceration. The laceration measures 2 cm. Tetanus is not known however patient does not want a tetanus update. Laceration repaired using 6 simple interrupted 5-0 Ethilon sutures. Patient tolerated procedure well. No intra or postprocedural complications. Sutures are to be removed in 7 to 10 days. No indication for antibiotics at this time. Vital stable will discharge home. Patient agrees to follow-up with her primary care doctor within 48 hours for reevaluation. Portions of this note were created with voice recognition technology. There may be grammatical, spelling, punctuation or sound alike errors Complexity problem addressed is moderate acute complicated. No critical care time. Complex of data reviewed and analyzed is none. No specialized testing ordered. Diagnosis made based on history and physical exam. Risk of complication and or risk of morbidity/mortality of patient management is low. Vital stable. Time spent to discharge patient approximately 10 minutes. Plan of care established for shared decision making. No social determinants of health present to impede follow-up. Portions of this note were created with voice recognition technology. There may be grammatical, spelling, punctuation or sound alike errors 02/16/24 12:23 Counseled pt/family regarding: diagnosis, need for follow-up, rad results - Departure Departure Disposition: Home Clinical Impression: Laceration Condition: Stable Critical Care Time: No Referrals: DAVID HATFIELD [Primary Care Provider] - Follow up/PCP as directed Additional Instructions: Sutures are to be removed in 7 to 10 days Discharge/Care Plan LUISITO FERNANDEZ was seen on 02/16/24 in the Emergency Room. The patient was counseled regarding Diagnosis,Lab results, Imaging studies, need for follow up and when to return to the Emergency Room. Prescriptions given: Discharge Note I have spoken with the patient and/or caregivers. I have explained the patient's condition, diagnosis and treatment plan based on the information available to me at this time. I have answered the patient's and/or caregiver's questions and addressed any concerns. The patient and/or caregivers have as good understanding of the patient's diagnosis, condition and treatment plan as can be expected at this point. The vital signs have been stable. The patient's condition is stable and appropriate for discharge from the emergency department. The patient will pursue further outpatient evaluation with the primary care physician or other designated or consulting physician as outlined in the discharge instructions. The patient and/or caregivers are agreeable to this plan of care and follow-up instructions have been explained in detail. The patient and/or caregivers have received these instruction. The patient/and or caregivers are aware that any significant change in condition or worsening of symptoms should prompt an immediate return to this or the closest emergency department or call 911.
[2024-02-16] MEDS ORDERED: BACIGUENT PACKET ONE (12:08)
[2024-02-16] MEDS: XYLOCAINE 1% HCL 20 ML MDV IJ ONE (12:08)
[2024-02-16] MEDS: BACIGUENT PACKET TP ONE (12:09)
[2024-02-16 12:11] VITALS: BP 124/95; TEMP 98.4
[2024-02-16 12:34] VITALS: PULSE 80; RESP 16; O2SAT 98
== END 2024-02-16 12:28 | disposition home or self-care (01) ==
LOC: ED 11:32
DX: S61.411A Laceration without foreign body of right hand, initial encounter (principal); W25.XXXA Contact with sharp glass, initial encounter; Y93.G1 Activity, food preparation and clean up; Z79.899 Other long term (current) drug therapy; Z72.0 Tobacco use
CPT/HCPCS: 12001; 96372; 99283; A9270-GY

== ENCOUNTER 2025-04-12 10:57 | Emergency (ER) | payer OTHER ==
--- NOTE | 2025-04-12 11:06 | ERPHSYRPT ---
- History of Present Illness Time Seen by Provider: 04/12/25 11:06 Source: patient Exam Limitations: no limitations Physician History: This is a 24-year-old white female patient arrives by private vehicle and whose primary care provider is Dr. Otilio Pringle with the complaint of left occipital parietal headache for 8 days. She describes this as an aching throbbing pain. She does not have a history of headaches or migraine headaches. She does have a history of recurrent ear infections and sinus infections. She has had associated the left nostril epistaxis intermittently over the last 8 days. Patient has a history of hypothyroidism, depression/anxiety, gastr oesophageal reflux disease and PTSD. She denies recent head trauma. Patient was seen at outpatient [facility]. They sent her to us to obtain a CT scan more rapidly than 1 that could be performed as an outpatient. Timing/Duration: day(s) (8) Quality: aching, throbbing (Left side) Head Pain Location: occipital (Left side), parietal (Left side) Severity of Pain-Max: mild (Moderate) Severity of Pain-Current: mild (To moderate) Recent Head Trauma: no recent headache/trauma Modifying Factors: Improves With: other (Nothing) Associated Symptoms: denies symptoms, No sensitive to light Previous symptoms: no prior history, no recent treatment Allergies/Adverse Reactions: cephalexin monohydrate [From Keflex] Allergy (Mild, Verified 02/16/24 11:58) Hives Latex, Natural Rubber Allergy (Verified 02/16/24 11:58) Rash Home Medications: Escitalopram Oxalate [Lexapro] 10 mg PO DAILY 04/12/25 [History] Levothyroxine Sodium 88 Mcg [Synthroid 88 Mcg] 88 mcg PO DAILY 04/12/25 [History] Norgestimate-Ethinyl Estradiol [Sprintec 28 Day Tablet] 1 each PO DAILY 04/12/25 [History] Omeprazole 40 mg PO DAILY 04/12/25 [History] Hx Tetanus, Diphtheria Vaccination/Date Given: Yes Hx Influenza Vaccination/Date Given: No Hx Pneumococcal Vaccination/Date Given: No Travel Risk - International Travel Have you traveled outside of the country in past 3 weeks: No - Emerging Infectious Disease Are you exhibiting symptoms associated with any current EIDs: No - Review of Systems Constitutional: No Symptoms Eyes: No Symptoms Ears, Nose, & Throat: Epistaxis (Intermittently left side over the last 8 days) Respiratory: No Symptoms Cardiac: No Symptoms Abdominal/Gastrointestinal: No Symptoms Genitourinary Symptoms: No Symptoms Musculoskeletal: No Symptoms Skin: No Symptoms Neurological: Headache Psychological: No Symptoms Endocrine: No Symptoms Hematologic/Lymphatic: No Symptoms Immunological/Allergic: No Symptoms All Other Systems: Reviewed and Negative - Past Medical History Pertinent Past Medical History: Yes Neurological History: No Pertinent History ENT History: No Pertinent History Cardiac History: No Pertinent History Respiratory History: No Pertinent History Endocrine Medical History: No Pertinent History Musculoskeletal History: No Pertinent History GI Medical History: No Pertinent History History: No Pertinent History Psycho-Social History: Anxiety, Depression Female Reproductive Disorders: No Pertinent History, Pelvic Inflammatory Disease Other Medical History: PTSD. HPV. PID - Past Surgical History Past Surgical History: Yes Neuro Surgical History: No Pertinent History Cardiac: No Pertinent History Respiratory: No Pertinent History Gastrointestinal: Appendectomy Genitourinary: No Pertinent History Musculoskeletal: No Pertinent History Female Surgical History: Section - Female History Hx Last Menstrual Period: 1 MONTH AGO - Social History Smoking Status: Current every day smoker How long have you smoked: 0.2 Exposure to second hand smoke: No Drug Use: none Patient Lives Alone: No - Social Determinants of Health Will the patient participate in the screening: Yes Do you worry about a steady place to live?: No In the past 12 months,have you had to go without utilities?: No Transportation Issues: No Has anyone in your support network made you feel unsafe?: No Have you or anyone in your house had to go w/o enough food: No - Nursing Vital Signs Nursing Vital Signs: Initial Vital Signs Temperature 97.8 F 04/12/25 10:57 Pulse Rate 65 04/12/25 10:57 Respiratory Rate 18 04/12/25 10:57 Blood Pressure 124/74 04/12/25 10:57 O2 Sat by Pulse Oximetry 99 04/12/25 10:57 Pain Scale Pain Intensity 4 - Physical Exam General Appearance: no apparent distress, alert, anxiety Eye Exam: PERRL/EOMI, eyes nml inspection Ears, Nose, Throat Exam: normal ENT inspection, moist mucous membranes Neck Exam: normal inspection, non-tender, supple, full range of motion Respiratory Exam: normal breath sounds, lungs clear, airway intact, No chest tenderness, No respiratory distress Cardiovascular Exam: regular rate/rhythm, normal heart sounds, normal peripheral pulses Gastrointestinal/Abdominal Exam: No tenderness Back Exam: normal inspection, normal range of motion, No CVA tenderness, No vertebral tenderness Extremity Exam: normal inspection, normal range of motion, pelvis stable Mental Status Exam: alert, oriented x 3, cooperative digital strategist senior manager Exam: normal hearing, normal speech, PERRL, tongue midline Coordination/Gait Exam: normal gait, normal cerebellar function Skin Exam: normal color, warm, dry Lymphatic Exam: No adenopathy SpO2 Interpretation: normal O2 Delivery: Room Air - Course Nursing assessment & vital signs reviewed: Yes Ordered Tests: Active Orders 24 hr Category Date Time Status HEAD WITHOUT CONTRAST [CT] Stat Exams 04/12/25 11:54 Completed Medication Summary Discontinued Medications Generic Name Dose Route Start Last Admin Trade Name [place] PRN Reason Stop Dose Admin Acetaminophen 650 mg 04/12/25 12:48 04/12/25 12:52 Acetaminophen 325 Mg Tablet PO 04/12/25 12:49 650 mg STAT ONE Administration Acetaminophen Confirm 04/12/25 12:50 Acetaminophen 325 Mg Tablet Administered 04/12/25 12:51 Dose 650 mg .ROUTE .[employer]-MED ONE - Progress Progress: re-examined, unchanged Air Movement: good Progress Note: 04/12/25 12:23 My medical decision making and the assignment of low to moderate complexity of this patient's medical issue today is based on review of the patient's past medical history, reviewed patient's medication list, reviewed patient drug allergy list, history present illness and physical findings on examination. The workup in this patient includes CT scan of the head without contrast. Differential diagnosis includes was not limited to otitis media, sinusitis, acute intracranial abnormality, migraine headache 04/12/25 13:[address] scan of the head without contrast was interpreted by the radiologist and I reviewed the impression. The impression states normal CT scan of the head without contrast exam. Paranasal sinuses are clear. Blood Culture(s) Obtained: No Antibiotics given: No Counseled pt/family regarding: diagnosis, need for follow-up, rad results Medical Desision Making - Diagnostic Testing Diagnostic test were ordered, analyzed, and reviewed by me: Yes Radiological Interpretation: Reviewed by me, Teleradiologist Report - Risk of complications Low Risk: Low risk of morbidity from additional dx testing or treatment The pt has a mod risk of morbidity or mortality based on: Need for prescription drug management - Departure Departure Disposition: Home Clinical Impression: Headache Condition: Stable Critical Care Time: No Referrals: DAVID HATFIELD [Primary Care Provider, [facility]] - Follow up/PCP as directed Additional Instructions: As discussed, use Tylenol 650 mg each dose and alternate with ibuprofen 600 mg orally with food every 4 hours while awake. In addition take the prescription medication as prescribed. Call your prescribing provider today, 04/12/2025, to make arrangements for follow-up appointment for further evaluation and management. Prescriptions: Orphenadrine Citrate 100 mg [Norflex 100 MG Tablet] 100 mg PO BID #10 tab
[2025-04-12 11:16] VITALS: TEMP 97.8
[2025-04-12 12:19] VITALS: O2SAT 100
[2025-04-12] MEDS ORDERED: TYLENOL 325 MG ONE (12:50)
[2025-04-12] MEDS: TYLENOL 325 MG PO ONE (12:52)
[2025-04-12 13:02] VITALS: RESP 14
--- NOTE | 2025-04-12 13:30 | XRAY ---
Indication: Headache 8 days. Multiple contiguous axial images obtained through the head without contrast. Comparison: None Normal appearing brain parenchyma, ventricles, and bony calvarium. Visualized paranasal sinuses and mastoid air cells are clear. Impression: Normal CT head without contrast exam.
[2025-04-12 13:56] VITALS: BP 109/76; PULSE 65
== END 2025-04-12 14:03 | disposition home or self-care (01) ==
LOC: ED 10:57
DX: R51.9 Headache, unspecified (principal); Z79.899 Other long term (current) drug therapy; Z72.0 Tobacco use